=== PATIENT | male | born 1970 | race Asian ===

== ENCOUNTER → 2017-01-03 | Outpatient (CLI) | payer BC ==
[2017-01-03 13:55] LABS: BASOPHILS % 1.3 % (0.0-2.0); EOSINOPHILS % 6.4 % (0.0-5.0); HEMATOCRIT. 31.7 % (42.0-52.0); HEMOGLOBIN. 10.2 g/dL (14.0-18.0); LYMPHOCYTES % 23.9 % (20.0-50.0); MEAN CORPUSCULAR HEMOGLOBIN 26.1 pg (28.0-32.0); MEAN CORPUSCULAR HGB CONC 32.2 g/dL (31.0-37.0); MEAN CORPUSCULAR VOLUME 80.9 fL (80.0-94.0); MEAN PLATELET VOLUME 7.6 fl (7.4-10.4); MONOCYTES % 7.7 % (2.0-8.0); NEUTROPHILS % 60.7 % (40.0-76.0); PLATELET 261 x1000/uL (130-400); RED BLOOD CELL COUNT 3.92 mill/uL (4.7-6.1); RED CELL DISTRIBUTION WIDTH 14.1 % (11.6-14.6); WHITE BLOOD COUNT 7.4 x1000/uL (4.5-11.0)
[2017-01-03 13:58] LABS: CLARITY URINE CLEAR (CLEAR); COLOR URINE YELLOW (YELLOW); GLUCOSE URINE 1+ (NEGATIVE); KETONES URINE NEGATIVE (NEGATIVE); LEUKOCYTE ESTERASE URINE NEGATIVE (NEGATIVE); NITRITE URINE NEGATIVE (NEGATIVE); OCCULT BLOOD URINE 2+ (NEGATIVE); PROTEIN URINE 4+ (NEGATIVE); SPECIFIC GRAVITY URINE 1.016 (1.005-1.030)
[2017-01-03 14:15] LABS: MUCUS URINE TRACE /lpf (NONE/TRACE); WBC URINE 0-2 /hpf (0-2)
[2017-01-03 14:17] LABS: SQUAMOUS EPITHELIAL CELL URINE NONE SEEN /lpf (RARE/1+)
[2017-01-03 14:21] LABS: BACTERIA URINE TRACE
[2017-01-03 14:42] LABS: ALANINE AMINOTRANSFERASE 21 IU/L (13-61); ALBUMIN 2.1 g/dL (3.4-5.0); ANION GAP 8; CALCIUM 8.1 mg/dL (8.5-10.1); CARBON DIOXIDE 31 mEq/L (21-32); CHLORIDE 105 mEq/L (98-107); INDEX HEMOLYSI 1 (1-3); INDEX ICTERIC 1 (1-4); INDEX LIPEMIC 1 (1-3); IRON 57 ug/dL (50-175); MAGNESIUM 2.2 mg/dL (1.8-2.4); TOTAL IRON BINDING CAPACITY 210 ug/dL (250-450); UREA NITROGEN BLOOD 30 mg/dL (7-21); eGFR 31 mL/min (>60)
[2017-01-03 15:29] LABS: HEPATITIS C VIR.AB 0.13 INDEXVAL (0.00-0.80)
== END | disposition home or self-care (01) ==
LOC: LAB 13:21
DX: I12.9 Hypertensive chronic kidney disease with stage 1 through stage 4 chronic kidney disease, or unspecified chronic kidney disease (principal); E11.22 Type 2 diabetes mellitus with diabetic chronic kidney disease; N18.3 Chronic kidney disease, stage 3 (moderate)
CPT/HCPCS: 36415; 80053; 81001; 82570; 82728; 83036; 83540; 83550; 83735; 84100; 84156; 85025; 86592; 86803; 87086

== ENCOUNTER → 2017-01-31 | Outpatient (CLI) | payer BC ==
[2017-01-31 15:52] LABS: BASOPHILS % 1.2 % (0.0-2.0); EOSINOPHILS % 7.6 % (0.0-5.0); HEMATOCRIT. 30.5 % (42.0-52.0); HEMOGLOBIN. 9.7 g/dL (14.0-18.0); MEAN CORPUSCULAR HEMOGLOBIN 26.2 pg (28.0-32.0); MEAN PLATELET VOLUME 7.9 fl (7.4-10.4); MONOCYTES % 8.6 % (2.0-8.0); NEUTROPHILS % 62.6 % (40.0-76.0); PLATELET 283 x1000/uL (130-400); RED BLOOD CELL COUNT 3.72 mill/uL (4.7-6.1); RED CELL DISTRIBUTION WIDTH 14.1 % (11.6-14.6)
[2017-01-31 15:53] LABS: CLARITY URINE CLEAR (CLEAR); COLOR URINE YELLOW (YELLOW); GLUCOSE URINE 3+ (NEGATIVE); KETONES URINE NEGATIVE (NEGATIVE); LEUKOCYTE ESTERASE URINE NEGATIVE (NEGATIVE); NITRITE URINE NEGATIVE (NEGATIVE); OCCULT BLOOD URINE 2+ (NEGATIVE); PROTEIN URINE 3+ (NEGATIVE); UROBILINOGEN URINE 0.2 E.U./dL (0.2-1.0)
[2017-01-31 16:04] LABS: CARBON DIOXIDE 27 mEq/L (21-32); CHLORIDE 107 mEq/L (98-107)
[2017-01-31 16:14] LABS: PHOSPHORUS 2.7 mg/dL (2.5-4.9)
[2017-01-31 16:31] LABS: CREATININE URINE RANDOM 78.6 mg/dL
== END | disposition home or self-care (01) ==
LOC: LAB 15:06
PROVIDERS: ATTEND Internal Medicine
DX: I12.9 Hypertensive chronic kidney disease with stage 1 through stage 4 chronic kidney disease, or unspecified chronic kidney disease (principal); N18.3 Chronic kidney disease, stage 3 (moderate); D63.8 Anemia in other chronic diseases classified elsewhere
CPT/HCPCS: 36415; 80053; 81001; 82570; 83036; 83735; 84100; 84156; 84443; 85025; 87086

== ENCOUNTER → 2017-03-09 | Outpatient (CLI) | payer BC | END | disposition home or self-care (01) | LOC: LAB 11:44 | PROVIDERS: ATTEND Internal Medicine | DX: E11.9 Type 2 diabetes mellitus without complications (principal) | CPT/HCPCS: 36415; 80048; 83036 ==

== ENCOUNTER → 2017-05-05 | Outpatient (CLI) | payer BC ==
[2017-05-05 09:59] LABS: BASOPHILS % 1.1 % (0.0-2.0); EOSINOPHILS % 6.5 % (0.0-5.0); HEMATOCRIT. 34.4 % (42.0-52.0); HEMOGLOBIN. 10.9 g/dL (14.0-18.0); LYMPHOCYTES % 19.9 % (20.0-50.0); MEAN CORPUSCULAR HEMOGLOBIN 25.9 pg (28.0-32.0); MEAN CORPUSCULAR VOLUME 81.4 fL (80.0-94.0); MEAN PLATELET VOLUME 7.6 fl (7.4-10.4); NEUTROPHILS % 64.5 % (40.0-76.0); PLATELET 280 x1000/uL (130-400); RED BLOOD CELL COUNT 4.22 mill/uL (4.7-6.1); RED CELL DISTRIBUTION WIDTH 14.1 % (11.6-14.6)
[2017-05-05 10:00] LABS: CLARITY URINE CLEAR (CLEAR); COLOR URINE YELLOW (YELLOW); GLUCOSE URINE 1+ (NEGATIVE); KETONES URINE NEGATIVE (NEGATIVE); LEUKOCYTE ESTERASE URINE NEGATIVE (NEGATIVE); NITRITE URINE NEGATIVE (NEGATIVE); OCCULT BLOOD URINE 2+ (NEGATIVE); PROTEIN URINE 4+ (NEGATIVE); SPECIFIC GRAVITY URINE 1.021 (1.005-1.030); UROBILINOGEN URINE 0.2 E.U./dL (0.2-1.0)
[2017-05-05 10:22] LABS: CARBON DIOXIDE 27 mEq/L (21-32); CHLORIDE 109 mEq/L (98-107); HDL CHOLESTEROL 42 mg/dL (40-59); LDL CHOLESTEROL 136 mg/dL (5-100)
[2017-05-06 10:12] LABS: MICROALBUMIN RANDOM URINE 4036.2 ug/mL (Not Estab.)
== END | disposition home or self-care (01) ==
LOC: LAB 09:34
PROVIDERS: ATTEND Internal Medicine
DX: E11.22 Type 2 diabetes mellitus with diabetic chronic kidney disease (principal); N04.9 Nephrotic syndrome with unspecified morphologic changes; Z68.25 Body mass index [BMI] 25.0-25.9, adult
CPT/HCPCS: 36415; 80053; 80061; 81001; 82043; 82570; 83036; 85025

== ENCOUNTER → 2017-06-17 | Outpatient (CLI) | payer BC ==
[2017-06-17 09:25] LABS: BASOPHILS % 1.1 % (0.0-2.0); EOSINOPHILS % 9.5 % (0.0-5.0); HEMATOCRIT. 31.8 % (42.0-52.0); HEMOGLOBIN. 10.3 g/dL (14.0-18.0); LYMPHOCYTES % 35.5 % (20.0-50.0); MEAN CORPUSCULAR HEMOGLOBIN 26.5 pg (28.0-32.0); MEAN CORPUSCULAR VOLUME 81.9 fL (80.0-94.0); MEAN PLATELET VOLUME 7.9 fl (7.4-10.4); MONOCYTES % 7.9 % (2.0-8.0); PLATELET 267 x1000/uL (130-400); RED BLOOD CELL COUNT 3.88 mill/uL (4.7-6.1); RED CELL DISTRIBUTION WIDTH 14.2 % (11.6-14.6)
[2017-06-17 09:29] LABS: CARBON DIOXIDE 24 mEq/L (21-32); CHLORIDE 107 mEq/L (98-107)
[2017-06-17 09:33] LABS: GLUCOSE URINE 2+ (NEGATIVE); KETONES URINE NEGATIVE (NEGATIVE); LEUKOCYTE ESTERASE URINE NEGATIVE (NEGATIVE); NITRITE URINE NEGATIVE (NEGATIVE); OCCULT BLOOD URINE 1+ (NEGATIVE); PH URINE 5.5 (4.5-8.0); PROTEIN URINE 4+ (NEGATIVE); SPECIFIC GRAVITY URINE 1.018 (1.005-1.030); UROBILINOGEN URINE 0.2 E.U./dL (0.2-1.0)
[2017-06-17 09:35] LABS: CLARITY URINE CLEAR (CLEAR); COLOR URINE YELLOW (YELLOW)
== END | disposition home or self-care (01) ==
LOC: LAB 08:40
PROVIDERS: ATTEND Internal Medicine Nephrology
DX: I12.9 Hypertensive chronic kidney disease with stage 1 through stage 4 chronic kidney disease, or unspecified chronic kidney disease (principal); N18.3 Chronic kidney disease, stage 3 (moderate); E11.22 Type 2 diabetes mellitus with diabetic chronic kidney disease
CPT/HCPCS: 36415; 80053; 81001; 82570; 83735; 84100; 84156; 85025; 87086

== ENCOUNTER → 2017-07-13 | Outpatient (CLI) | payer BC ==
[2017-07-13 09:28] LABS: BASOPHILS % 1.1 % (0.0-2.0); EOSINOPHILS % 5.5 % (0.0-5.0); HEMATOCRIT. 33.5 % (42.0-52.0); HEMOGLOBIN. 11.1 g/dL (14.0-18.0); LYMPHOCYTES % 18.1 % (20.0-50.0); MEAN CORPUSCULAR HEMOGLOBIN 27.2 pg (28.0-32.0); MEAN CORPUSCULAR VOLUME 82.1 fL (80.0-94.0); MEAN PLATELET VOLUME 7.9 fl (7.4-10.4); MONOCYTES % 6.8 % (2.0-8.0); NEUTROPHILS % 68.5 % (40.0-76.0); PLATELET 295 x1000/uL (130-400); RED BLOOD CELL COUNT 4.08 mill/uL (4.7-6.1); RED CELL DISTRIBUTION WIDTH 15.1 % (11.6-14.6)
[2017-07-13 10:05] LABS: CARBON DIOXIDE 29 mEq/L (21-32); CHLORIDE 107 mEq/L (98-107); PHOSPHORUS 3.7 mg/dL (2.5-4.9)
[2017-07-13 10:11] LABS: CLARITY URINE CLEAR (CLEAR); COLOR URINE YELLOW (YELLOW); GLUCOSE URINE TRACE (NEGATIVE); KETONES URINE NEGATIVE (NEGATIVE); LEUKOCYTE ESTERASE URINE NEGATIVE (NEGATIVE); NITRITE URINE NEGATIVE (NEGATIVE); OCCULT BLOOD URINE 2+ (NEGATIVE); PROTEIN URINE 4+ (NEGATIVE); SPECIFIC GRAVITY URINE 1.016 (1.005-1.030); UROBILINOGEN URINE 0.2 E.U./dL (0.2-1.0)
== END | disposition home or self-care (01) ==
LOC: LAB 09:03
PROVIDERS: ATTEND Internal Medicine Nephrology
DX: E11.9 Type 2 diabetes mellitus without complications (principal); I12.9 Hypertensive chronic kidney disease with stage 1 through stage 4 chronic kidney disease, or unspecified chronic kidney disease; N18.4 Chronic kidney disease, stage 4 (severe)
CPT/HCPCS: 36415; 73030; 80053; 81001; 82306; 82570; 83036; 83735; 84100; 84156; 85025

== ENCOUNTER → 2017-08-17 | Outpatient (CLI) | payer BC ==
[2017-08-17 10:49] LABS: BASOPHILS % 0.9 % (0.0-2.0); HEMATOCRIT. 33.5 % (42.0-52.0); HEMOGLOBIN. 10.6 g/dL (14.0-18.0); LYMPHOCYTES % 19.9 % (20.0-50.0); MEAN CORPUSCULAR HEMOGLOBIN 26.3 pg (28.0-32.0); MEAN CORPUSCULAR VOLUME 82.9 fL (80.0-94.0); MEAN PLATELET VOLUME 7.6 fl (7.4-10.4); MONOCYTES % 7.9 % (2.0-8.0); NEUTROPHILS % 63.3 % (40.0-76.0); PLATELET 316 x1000/uL (130-400); RED BLOOD CELL COUNT 4.04 mill/uL (4.7-6.1); RED CELL DISTRIBUTION WIDTH 14.9 % (11.6-14.6)
[2017-08-17 11:12] LABS: CARBON DIOXIDE 27 mEq/L (21-32); CHLORIDE 109 mEq/L (98-107); PHOSPHORUS 3.2 mg/dL (2.5-4.9)
[2017-08-17 18:45] LABS: CLARITY URINE CLEAR (CLEAR); COLOR URINE YELLOW (YELLOW); KETONES URINE NEGATIVE (NEGATIVE); LEUKOCYTE ESTERASE URINE NEGATIVE (NEGATIVE); NITRITE URINE NEGATIVE (NEGATIVE); OCCULT BLOOD URINE 2+ (NEGATIVE); PH URINE 6.5 (4.5-8.0); PROTEIN URINE 4+ (NEGATIVE); SPECIFIC GRAVITY URINE 1.019 (1.005-1.030); UROBILINOGEN URINE 0.2 E.U./dL (0.2-1.0)
== END | disposition home or self-care (01) ==
LOC: LAB 10:15
PROVIDERS: ATTEND Internal Medicine Nephrology
DX: I12.9 Hypertensive chronic kidney disease with stage 1 through stage 4 chronic kidney disease, or unspecified chronic kidney disease (principal); E11.22 Type 2 diabetes mellitus with diabetic chronic kidney disease; N18.4 Chronic kidney disease, stage 4 (severe)
CPT/HCPCS: 36415; 80053; 81001; 82570; 83735; 84100; 84156; 85025; 87086

== ENCOUNTER → 2017-09-24 | Outpatient (CLI) | payer BC ==
[~2017-09-24] MED LIST: AMLO5TAB88 PO; ATOR-2 PO; EPOE200014 SUBCUT; FURO-151 PO; GLIM4TAB2 PO; HYDR1.5C TP; INSU100I28 SQ; LOSA100T14 PO; METO-411 PO; METO-539 PO; PHEN177L2 PO; SODI650T PO
[2017-09-24 09:19] LABS: BASOPHILS % 1.3 % (0.0-2.0); EOSINOPHILS % 11.2 % (0.0-5.0); HEMATOCRIT. 31.1 % (42.0-52.0); HEMOGLOBIN. 9.9 g/dL (14.0-18.0); LYMPHOCYTES % 25.3 % (20.0-50.0); MEAN CORPUSCULAR HEMOGLOBIN 26.5 pg (28.0-32.0); MEAN CORPUSCULAR VOLUME 83.6 fL (80.0-94.0); MEAN PLATELET VOLUME 7.7 fl (7.4-10.4); MONOCYTES % 8.8 % (2.0-8.0); NEUTROPHILS % 53.4 % (40.0-76.0); PLATELET 292 x1000/uL (130-400); RED BLOOD CELL COUNT 3.72 mill/uL (4.7-6.1); RED CELL DISTRIBUTION WIDTH 14.4 % (11.6-14.6)
[2017-09-24 10:24] LABS: CHLORIDE 112 mEq/L (98-107); PHOSPHORUS 2.9 mg/dL (2.5-4.9)
[2017-09-24 10:41] LABS: CLARITY URINE CLEAR (CLEAR); COLOR URINE YELLOW (YELLOW); KETONES URINE NEGATIVE (NEGATIVE); LEUKOCYTE ESTERASE URINE NEGATIVE (NEGATIVE); NITRITE URINE NEGATIVE (NEGATIVE); OCCULT BLOOD URINE 2+ (NEGATIVE); PROTEIN URINE 4+ (NEGATIVE); SPECIFIC GRAVITY URINE 1.019 (1.005-1.030); UROBILINOGEN URINE 0.2 E.U./dL (0.2-1.0)
== END | disposition home or self-care (01) ==
LOC: LAB 08:49
PROVIDERS: ATTEND Internal Medicine Nephrology
DX: I12.9 Hypertensive chronic kidney disease with stage 1 through stage 4 chronic kidney disease, or unspecified chronic kidney disease (principal); E11.22 Type 2 diabetes mellitus with diabetic chronic kidney disease; N18.4 Chronic kidney disease, stage 4 (severe)
CPT/HCPCS: 36415; 81001; 82570; 83036; 83735; 84100; 84156

== ENCOUNTER → 2017-11-27 | Outpatient (CLI) | payer BC ==
[2017-11-27 08:16] LABS: EOSINOPHILS % 6.1 % (0.0-5.0); HEMATOCRIT. 33.2 % (42.0-52.0); HEMOGLOBIN. 10.5 g/dL (14.0-18.0); LYMPHOCYTES % 21.7 % (20.0-50.0); MEAN CORPUSCULAR HEMOGLOBIN 26.4 pg (28.0-32.0); MEAN CORPUSCULAR VOLUME 83.1 fL (80.0-94.0); MEAN PLATELET VOLUME 8.3 fl (7.4-10.4); NEUTROPHILS % 64.2 % (40.0-76.0); PLATELET 326 x1000/uL (130-400); RED CELL DISTRIBUTION WIDTH 14.5 % (11.6-14.6)
[2017-11-27 08:25] LABS: INR 0.9; PARTIAL THROMBOPLASTIN TIME 28.2 sec (23.4-31.0); PROTHROMBIN TIME 9.7 sec (9.4-11.6)
[2017-11-27 08:38] LABS: CHLORIDE 105 mEq/L (98-107)
[2017-11-27 08:48] LABS: PHOSPHORUS 3.9 mg/dL (2.5-4.9)
[2017-11-27 10:00] LABS: CLARITY URINE CLEAR (CLEAR); COLOR URINE YELLOW (YELLOW); KETONES URINE NEGATIVE (NEGATIVE); LEUKOCYTE ESTERASE URINE NEGATIVE (NEGATIVE); NITRITE URINE NEGATIVE (NEGATIVE); OCCULT BLOOD URINE 1+ (NEGATIVE); PROTEIN URINE 3+ (NEGATIVE); SPECIFIC GRAVITY URINE 1.013 (1.005-1.030); UROBILINOGEN URINE 0.2 E.U./dL (0.2-1.0)
== END | disposition home or self-care (01) ==
LOC: LAB 07:47
PROVIDERS: ATTEND Internal Medicine Nephrology
DX: I12.9 Hypertensive chronic kidney disease with stage 1 through stage 4 chronic kidney disease, or unspecified chronic kidney disease (principal); N18.4 Chronic kidney disease, stage 4 (severe); E11.22 Type 2 diabetes mellitus with diabetic chronic kidney disease; D63.1 Anemia in chronic kidney disease; R79.89 Other specified abnormal findings of blood chemistry
CPT/HCPCS: 36415; 80053; 81003; 83036; 83735; 84100; 85025; 85610; 85730; 87086

== ENCOUNTER → 2018-03-18 | Outpatient (CLI) | payer BC ==
[2018-03-18 10:53] LABS: BASOPHILS % 1.2 % (0.0-2.0); EOSINOPHILS % 6.6 % (0.0-5.0); HEMATOCRIT. 29.6 % (42.0-52.0); HEMOGLOBIN. 9.5 g/dL (14.0-18.0); LYMPHOCYTES % 22.4 % (20.0-50.0); MEAN CORPUSCULAR HEMOGLOBIN 26.7 pg (28.0-32.0); MEAN CORPUSCULAR VOLUME 83.3 fL (80.0-94.0); MEAN PLATELET VOLUME 7.5 fl (7.4-10.4); MONOCYTES % 7.5 % (2.0-8.0); NEUTROPHILS % 62.3 % (40.0-76.0); PLATELET 327 x1000/uL (130-400); RED BLOOD CELL COUNT 3.55 mill/uL (4.7-6.1); RED CELL DISTRIBUTION WIDTH 14.7 % (11.6-14.6)
[2018-03-18 10:58] LABS: CLARITY URINE CLEAR (CLEAR); COLOR URINE YELLOW (YELLOW); KETONES URINE NEGATIVE (NEGATIVE); LEUKOCYTE ESTERASE URINE NEGATIVE (NEGATIVE); NITRITE URINE NEGATIVE (NEGATIVE); OCCULT BLOOD URINE 2+ (NEGATIVE); PROTEIN URINE 3+ (NEGATIVE); SPECIFIC GRAVITY URINE 1.011 (1.005-1.030); UROBILINOGEN URINE 0.2 E.U./dL (0.2-1.0)
[2018-03-18 11:00] LABS: CHLORIDE 112 mEq/L (98-107)
[2018-03-18 11:07] LABS: PHOSPHORUS 4.8 mg/dL (2.5-4.9)
== END | disposition home or self-care (01) ==
LOC: LAB 10:24
PROVIDERS: ATTEND Internal Medicine Nephrology
DX: E11.22 Type 2 diabetes mellitus with diabetic chronic kidney disease (principal); I12.9 Hypertensive chronic kidney disease with stage 1 through stage 4 chronic kidney disease, or unspecified chronic kidney disease; N18.4 Chronic kidney disease, stage 4 (severe); D63.8 Anemia in other chronic diseases classified elsewhere
CPT/HCPCS: 36415; 80053; 81003; 82570; 83036; 83735; 84100; 84156; 85025; 87086

== ENCOUNTER → 2018-04-22 | Outpatient (CLI) | payer BC ==
[2018-04-22 09:08] LABS: CLARITY URINE CLEAR (CLEAR); COLOR URINE YELLOW (YELLOW); KETONES URINE NEGATIVE (NEGATIVE); LEUKOCYTE ESTERASE URINE NEGATIVE (NEGATIVE); NITRITE URINE NEGATIVE (NEGATIVE); OCCULT BLOOD URINE 2+ (NEGATIVE); PROTEIN URINE 4+ (NEGATIVE); SPECIFIC GRAVITY URINE 1.014 (1.005-1.030); UROBILINOGEN URINE 0.2 E.U./dL (0.2-1.0)
[2018-04-22 09:18] LABS: PARTIAL THROMBOPLASTIN TIME 30.6 sec (23.4-31.0)
[2018-04-22 09:35] LABS: BASOPHILS % 1.8 % (0.0-2.0); EOSINOPHILS % 9.2 % (0.0-5.0); HEMATOCRIT. 27.2 % (42.0-52.0); HEMOGLOBIN. 8.9 g/dL (14.0-18.0); LYMPHOCYTES % 28.1 % (20.0-50.0); MEAN CORPUSCULAR HEMOGLOBIN 27.7 pg (28.0-32.0); MEAN CORPUSCULAR VOLUME 84.6 fL (80.0-94.0); MEAN PLATELET VOLUME 8.4 fl (7.4-10.4); MONOCYTES % 8.5 % (2.0-8.0); NEUTROPHILS % 52.4 % (40.0-76.0); PLATELET 277 x1000/uL (130-400); RED BLOOD CELL COUNT 3.21 mill/uL (4.7-6.1); RED CELL DISTRIBUTION WIDTH 15.1 % (11.6-14.6)
[2018-04-22 09:47] LABS: CHLORIDE 113 mEq/L (98-107)
[2018-04-22 10:07] LABS: PHOSPHORUS 5.7 mg/dL (2.5-4.9)
== END | disposition home or self-care (01) ==
LOC: LAB 08:36
PROVIDERS: ATTEND Internal Medicine Nephrology
DX: I12.9 Hypertensive chronic kidney disease with stage 1 through stage 4 chronic kidney disease, or unspecified chronic kidney disease (principal); E11.22 Type 2 diabetes mellitus with diabetic chronic kidney disease; N18.4 Chronic kidney disease, stage 4 (severe); D63.8 Anemia in other chronic diseases classified elsewhere
CPT/HCPCS: 36415; 80053; 81003; 82570; 83036; 83735; 84100; 84156; 85025; 85610; 85730

== ENCOUNTER → 2018-05-13 | Outpatient (CLI) | payer BC ==
[~2018-05-13] MED LIST changes: -EPOE200014 SUBCUT; -METO-411 PO; +NIFEDIPINE 10MG CAPSULE ONE; -PHEN177L2 PO; -SODI650T PO
[2018-05-13 09:38] LABS: HEMOGLOBIN. 9.3 g/dL (14.0-18.0); RED BLOOD CELL COUNT 3.37 mill/uL (4.7-6.1)
[2018-05-13 09:39] LABS: BASOPHILS % 1.2 % (0.0-2.0); EOSINOPHILS % 8.8 % (0.0-5.0); LYMPHOCYTES % 25.3 % (20.0-50.0); MEAN CORPUSCULAR HEMOGLOBIN 27.6 pg (28.0-32.0); MEAN CORPUSCULAR VOLUME 83.1 fL (80.0-94.0); MEAN PLATELET VOLUME 7.8 fl (7.4-10.4); MONOCYTES % 8.5 % (2.0-8.0); NEUTROPHILS % 56.2 % (40.0-76.0); PLATELET 299 x1000/uL (130-400); RED CELL DISTRIBUTION WIDTH 14.7 % (11.6-14.6)
[2018-05-13 09:39] LABS: CLARITY URINE CLEAR (CLEAR); COLOR URINE YELLOW (YELLOW); KETONES URINE NEGATIVE (NEGATIVE); LEUKOCYTE ESTERASE URINE NEGATIVE (NEGATIVE); NITRITE URINE NEGATIVE (NEGATIVE); OCCULT BLOOD URINE 2+ (NEGATIVE); PH URINE 6.5 (4.5-8.0); PROTEIN URINE 3+ (NEGATIVE); SPECIFIC GRAVITY URINE 1.009 (1.005-1.030); UROBILINOGEN URINE 0.2 E.U./dL (0.2-1.0)
[2018-05-13 09:45] LABS: PARTIAL THROMBOPLASTIN TIME 29.4 sec (23.4-31.0); PROTHROMBIN TIME 9.7 sec (9.1-11.1)
[2018-05-13 10:40] LABS: CHLORIDE 106 mEq/L (98-107)
== END | disposition home or self-care (01) ==
LOC: LAB 09:09
PROVIDERS: ATTEND Internal Medicine Nephrology
DX: I12.0 Hypertensive chronic kidney disease with stage 5 chronic kidney disease or end stage renal disease (principal); N18.5 Chronic kidney disease, stage 5; D63.1 Anemia in chronic kidney disease; Z79.899 Other long term (current) drug therapy
CPT/HCPCS: 36415; 80053; 81003; 82570; 83036; 83735; 83970; 84100; 84156; 85025; 85610; 85730; 87086

== ENCOUNTER 2018-05-14 07:40 | Day surgery (SDC) | payer BC ==
[~2018-05-14] VITALS: Ht 167.6 cm; Wt 74.8 kg
[2018-05-14] VITALS (12 sets, daily range): BP systolic 113–210; BP diastolic 60–107
[2018-05-14] MEDS ORDERED: FENTANYL CITRATE/PF 50MCG/ML 2ML VIAL ONE (08:06)
[2018-05-14] MEDS ORDERED: SODIUM BICARBONATE 4% (2.4MEQ) 5ML VIAL IV ONE (08:26)
[2018-05-14] MEDS ORDERED: LIDOCAINE HCL 1% 10 MG/ML 10ML VIAL ONE (08:26)
[2018-05-14] MEDS ORDERED: LOSA100T14 PO (09:08)
[2018-05-14] MEDS ORDERED: HYDR1.5C TP (09:08)
[2018-05-14] MEDS ORDERED: FURO-151 PO (09:08)
[2018-05-14] MEDS ORDERED: GLIM4TAB2 PO (09:08)
[2018-05-14] MEDS ORDERED: AMLO5TAB88 PO (09:08)
[2018-05-14] MEDS ORDERED: ATOR-2 PO (09:08)
[2018-05-14] MEDS ORDERED: METO-539 PO (09:08)
[2018-05-14] MEDS ORDERED: NIFEDIPINE 10MG CAPSULE PO ONE (09:15)
[2018-05-14] MEDS ORDERED: INSU100I28 SQ (09:20)
[2018-05-14] MEDS ORDERED: FENTANYL CITRATE/PF 50MCG/ML 2ML VIAL IV ONE (09:30)
[2018-05-14] MEDS ORDERED: HYDROCODONE/ACETAMINOPHEN 5/325MG TABLET PO PRN (09:30)
[2018-05-14 12:58] LABS: HEMATOCRIT 25.2 % (42.0-52.0); HEMOGLOBIN 8.3 g/dL (14.0-18.0)
== END 2018-05-14 14:00 | disposition home or self-care (01) ==
LOC: RAD 07:40
PROVIDERS: ATTEND Internal Medicine Nephrology
DX: E11.22 Type 2 diabetes mellitus with diabetic chronic kidney disease (principal); N18.6 End stage renal disease; I12.0 Hypertensive chronic kidney disease with stage 5 chronic kidney disease or end stage renal disease; D64.9 Anemia, unspecified; Z79.4 Long term (current) use of insulin; Z79.899 Other long term (current) drug therapy
CPT/HCPCS: 36415; 50200; 76942; 85014; 85018; 88305; 88346; 88348; J3010; J3490; J7050

== ENCOUNTER 2018-06-28 05:20 | Day surgery (SDC) | payer BC ==
[~2018-06-28] VITALS: Ht 167.6 cm; Wt 72.6 kg
[~2018-06-28 05:20] MED LIST changes: +METO-411 PO; -METO-539 PO; -NIFEDIPINE 10MG CAPSULE ONE; +PHEN177L2 PO
[2018-06-28 06:40] LABS: PARTIAL THROMBOPLASTIN TIME 30.5 sec (23.4-31.0); PROTHROMBIN TIME 9.7 sec (9.1-11.1)
[2018-06-28] MEDS ORDERED: SODIUM CHLORIDE 0.9% 500 ML IV ONE (06:40)
[2018-06-28 06:54] LABS: BASOPHILS % 1.9 % (0.0-2.0); EOSINOPHILS % 6.8 % (0.0-5.0); HEMATOCRIT. 29.8 % (42.0-52.0); HEMOGLOBIN. 9.3 g/dL (14.0-18.0); LYMPHOCYTES % 14.3 % (20.0-50.0); MEAN CORPUSCULAR HEMOGLOBIN 26.8 pg (28.0-32.0); MEAN CORPUSCULAR VOLUME 85.4 fL (80.0-94.0); MEAN PLATELET VOLUME 8.6 fl (7.4-10.4); MONOCYTES % 8.1 % (2.0-8.0); NEUTROPHILS % 68.9 % (40.0-76.0); PLATELET 359 x1000/uL (130-400); RED BLOOD CELL COUNT 3.49 mill/uL (4.7-6.1); RED CELL DISTRIBUTION WIDTH 15.7 % (11.6-14.6)
[2018-06-28] MEDS ORDERED: BACITRACIN ZINC 15GM TUBE TOP ONE (07:20)
[2018-06-28] MEDS ORDERED: HEPARIN SODIUM 1,000 UNIT/1ML VIAL IV ONE (07:20)
[2018-06-28] MEDS ORDERED: GELATIN SPONGE,ABSORBABLE 12-7MM SPONGE ONE (07:20)
[2018-06-28] MEDS ORDERED: THROMBIN (BOVINE) 5000 UNITS/VIAL TOP ONE (07:21)
[2018-06-28] MEDS ORDERED: NORMAL SALINE 0.9% 10 ML SYR ONE (07:21)
[2018-06-28] MEDS ORDERED: BUPIVACAINE HCL/PF 0.5% (5MG/ML) 10ML ONE (07:21)
[2018-06-28] MEDS ORDERED: BACITRACIN 50,000 UNITS/VIAL ONE (07:22)
[2018-06-28] MEDS ORDERED: LIDOCAINE HCL/PF 1% 10 MG/ML 5ML VIAL ONE (07:22)
[2018-06-28] MEDS ORDERED: SODIUM CHLORIDE 0.9% 1,000 ML ONE (07:22)
[2018-06-28] MEDS ORDERED: PROPOFOL 200MG/20ML VIAL IV ONE (07:56)
[2018-06-28] MEDS ORDERED: GLYCOPYRROLATE 0.2 MG/ML 2ML VIAL ONE ×2 (08:10→08:26)
[2018-06-28] MEDS ORDERED: SODI650T PO (08:13)
[2018-06-28] MEDS ORDERED: EPOE200014 SUBCUT (08:13)
[2018-06-28] MEDS ORDERED: FENTANYL CITRATE/PF 50MCG/ML 2ML VIAL ONE (08:19)
[2018-06-28] MEDS ORDERED: HYDROCODONE/ACETAMINOPHEN 5/325MG TABLET PO PRN (10:15)
[2018-06-28] MEDS ORDERED: ONDANSETRON HCL 4MG/2ML INJ IV PRN (11:15)
[2018-06-28] MEDS ORDERED: HYDROMORPHONE HCL/PF 2MG/ML CPJ IV PRN (11:15)
== END 2018-06-28 11:15 | disposition home or self-care (01) ==
LOC: OR 05:20
PROVIDERS: ATTEND Surgery Vascular Surgery
DX: N18.6 End stage renal disease (principal); I12.0 Hypertensive chronic kidney disease with stage 5 chronic kidney disease or end stage renal disease; E11.22 Type 2 diabetes mellitus with diabetic chronic kidney disease; D64.9 Anemia, unspecified; E78.00 Pure hypercholesterolemia, unspecified; K21.9 Gastro-esophageal reflux disease without esophagitis; Z79.899 Other long term (current) drug therapy; Z79.4 Long term (current) use of insulin; Z98.890 Other specified postprocedural states
CPT/HCPCS: 36415; 36821; 71045; 80048; 82962; 85025; 85610; 85730; 93005; A4216; J1644; J3010; J3490; J7030; J2704; J7040

== ENCOUNTER → 2018-07-06 | Day surgery (SDC) | payer BC ==
[2018-07-06] VITALS (12 sets, daily range): BP systolic 110–137; BP diastolic 86–97
[~2018-07-06] VITALS: Ht 167.6 cm; Wt 72.6 kg
[~2018-07-06] MED LIST changes: +CEFAZOLIN 1000MG PREMIX 50 ML IV ONE; +EPOE200014 SUBCUT; +FENTANYL CITRATE/PF 50MCG/ML 2ML VIAL IV ONE; +FENTANYL CITRATE/PF 50MCG/ML 2ML VIAL ONE; -HYDR1.5C TP; -INSU100I28 SQ; +LIDOCAINE HCL 1% 20ML VIAL (Pyxis) INJ ONE; -PHEN177L2 PO; +SODI650T PO; +SODIUM BICARBONATE 4% (2.4MEQ) 5ML VIAL IV ONE
[2018-07-06 08:58] LABS: EOSINOPHILS % 3.1 % (0.0-5.0); HEMATOCRIT. 26.3 % (42.0-52.0); HEMOGLOBIN. 8.5 g/dL (14.0-18.0); LYMPHOCYTES % 12.1 % (20.0-50.0); MEAN CORPUSCULAR HEMOGLOBIN 27.8 pg (28.0-32.0); MEAN CORPUSCULAR VOLUME 85.4 fL (80.0-94.0); MEAN PLATELET VOLUME 8.3 fl (7.4-10.4); MONOCYTES % 10.8 % (2.0-8.0); PLATELET 318 x1000/uL (130-400); RED BLOOD CELL COUNT 3.08 mill/uL (4.7-6.1); RED CELL DISTRIBUTION WIDTH 15.4 % (11.6-14.6)
[2018-07-06 09:03] LABS: PARTIAL THROMBOPLASTIN TIME 32.7 sec (23.4-31.0)
[2018-07-06 09:46] LABS: PHOSPHORUS 8.9 mg/dL (2.5-4.9)
== END | disposition home or self-care (01) ==
LOC: ANGIO 08:34
PROVIDERS: ATTEND Internal Medicine Nephrology
DX: N18.6 End stage renal disease (principal); D64.9 Anemia, unspecified; K21.9 Gastro-esophageal reflux disease without esophagitis; E78.00 Pure hypercholesterolemia, unspecified; I12.0 Hypertensive chronic kidney disease with stage 5 chronic kidney disease or end stage renal disease; E11.22 Type 2 diabetes mellitus with diabetic chronic kidney disease; Z79.4 Long term (current) use of insulin; Z79.899 Other long term (current) drug therapy; Z98.890 Other specified postprocedural states
CPT/HCPCS: 36415; 36558; 71046; 76937; 77001; 80069; 85025; 85610; 85730; 99152; 99153; C1769; J0690; J1642; J3010; J3490; C1750; J7050

== ENCOUNTER → 2018-10-26 | Day surgery (SDC) | payer BC ==
[~2018-10-26] MED LIST changes: -CEFAZOLIN 1000MG PREMIX 50 ML IV ONE; -FENTANYL CITRATE/PF 50MCG/ML 2ML VIAL IV ONE; -FENTANYL CITRATE/PF 50MCG/ML 2ML VIAL ONE
== END | disposition home or self-care (01) ==
LOC: ANGIO 09:11
PROVIDERS: ATTEND Internal Medicine Nephrology
DX: N18.6 End stage renal disease (principal)
CPT/HCPCS: 36589; 87070; J3490

== ENCOUNTER → 2018-11-30 | Outpatient (CLI) | payer BC ==
[~2018-11-30] MED LIST changes: -LIDOCAINE HCL 1% 20ML VIAL (Pyxis) INJ ONE; -SODIUM BICARBONATE 4% (2.4MEQ) 5ML VIAL IV ONE
== END | disposition home or self-care (01) ==
LOC: RAD 09:32
PROVIDERS: ATTEND Internal Medicine Nephrology
DX: I12.0 Hypertensive chronic kidney disease with stage 5 chronic kidney disease or end stage renal disease (principal); E11.22 Type 2 diabetes mellitus with diabetic chronic kidney disease; N18.6 End stage renal disease; K21.9 Gastro-esophageal reflux disease without esophagitis
CPT/HCPCS: 71046

== ENCOUNTER → 2019-09-27 | Outpatient (CLI) | payer BC ==
[~2019-09-27] MED LIST changes: -GLIM4TAB2 PO; +GLIM4TAB36 PO; -LOSA100T14 PO; +LOSA100T32 PO
== END | disposition home or self-care (01) ==
LOC: RAD 10:53
PROVIDERS: ATTEND Internal Medicine Nephrology
DX: J90 Pleural effusion, not elsewhere classified (principal); I51.7 Cardiomegaly
CPT/HCPCS: 71046

== ENCOUNTER → 2019-10-04 | Outpatient (CLI) | payer BC | END | disposition home or self-care (01) | LOC: US 12:53 | PROVIDERS: ATTEND Internal Medicine Nephrology | DX: N18.5 Chronic kidney disease, stage 5 (principal) | CPT/HCPCS: 93971 ==

== ENCOUNTER 2019-10-24 21:23 | Inpatient (IN) | payer BC ==
[~2019-10-24] VITALS: Ht 165.1 cm; Wt 65.3 kg
[2019-10-24 21:30] VITALS: BP 141/70
[2019-10-24] MEDS ORDERED: MORPHINE SULFATE 2 MG/ML CPJ (NOT FOR IM USE) IV PRN ×2 (22:00→23:15)
[2019-10-24] MEDS ORDERED: DEXTROSE 50% WATER 50ML SYRINGE IV PRN (22:00)
[2019-10-24] MEDS ORDERED: LORAZEPAM 2MG/ML CPJ IV PRN (22:00)
[2019-10-24] MEDS ORDERED: DEXT 5%/0.9% NACL 1,000 ML IV SCH (22:00)
[2019-10-24] MEDS ORDERED: DILT180C51 MT (22:11)
[2019-10-24] MEDS ORDERED: CALC667C MT (22:12)
[2019-10-24] MEDS ORDERED: LINA5TAB PO (22:14)
[2019-10-24 22:22] LABS: BG BASE EXCESS -4.8 mmol/L (-2.0-2.0); BG CARBOXYHEMOGLOBIN 0.9 % (0.5-1.5); BG DEOXYHEMOGLOBIN 2.2 % (0.0-5.0); BG FRACTION INSPIRED OXYGEN 40; BG HCO3 ACT 20.3 mmol/L (22.0-26.0); BG OXYGEN SATURATION 97.8 % (92.0-98.5); BG OXYHEMOGLOBIN 96.9 % (94.0-97.0); BG PCO2 37.9 mmHg (35.0-45.0); BG PH 7.347 (7.350-7.450); BG PO2 114.6 mmHg (75.0-100.0); BG PRESSURE SUPPORT 10; BG SAMPLE SITE RIGHT RADIAL; BG TOTAL HEMOGLOBIN 12.4 g/dL (12.0-18.0); BG VENT MODE VENT - CPAP
[2019-10-24 23:15] VITALS: BP 143/77
[2019-10-24] MEDS ORDERED: CLONIDINE 0.1MG TABLET PO PRN (23:15)
[2019-10-24] MEDS ORDERED: ONDANSETRON HCL 4MG/2ML INJ IV PRN (23:15)
[2019-10-24] MEDS ORDERED: DOCUSATE SODIUM 100MG CAPSULE PO PRN (23:15)
[2019-10-24] MEDS ORDERED: MAGNESIUM/ALUMINUM HYDROXIDE/SIMETHICONE 30ML UDC PO PRN (23:15)
[2019-10-24 23:28] VITALS: BP 143/82
[2019-10-24 23:30] VITALS: BP 147/80
[2019-10-24] MEDS: INSULIN LISPRO 100 UNITS/ML SUBCUT SCH (23:43)
[2019-10-24] MEDS: BLOOD SUGAR DIAGNOSTIC STRIP TEST SCH (23:43)
[2019-10-24 23:58] LABS: CHLORIDE 100 mEq/L (98-107); HEMATOCRIT. 31.2 % (42.0-52.0); HEMOGLOBIN. 10.1 g/dL (14.0-18.0); MEAN CORPUSCULAR HEMOGLOBIN 26.2 pg (28.0-32.0); MEAN CORPUSCULAR VOLUME 81.1 fL (80.0-94.0); MEAN PLATELET VOLUME 8.3 fl (7.4-10.4); PLATELET 203 x1000/uL (130-400); RED BLOOD CELL COUNT 3.85 mill/uL (4.7-6.1); RED CELL DISTRIBUTION WIDTH 19.1 % (11.6-14.6)
[2019-10-25] VITALS (43 sets, daily range): BP systolic 116–162; BP diastolic 56–109
[2019-10-25 00:34] LABS: PHOSPHORUS 9.2 mg/dL (2.5-4.9)
[2019-10-25 05:42] LABS: HEMOGLOBIN. 10.1 g/dL (14.0-18.0); MEAN CORPUSCULAR HEMOGLOBIN 26.2 pg (28.0-32.0); MEAN CORPUSCULAR VOLUME 80.6 fL (80.0-94.0); MEAN PLATELET VOLUME 8.7 fl (7.4-10.4); PLATELET 198 x1000/uL (130-400); RED BLOOD CELL COUNT 3.84 mill/uL (4.7-6.1); RED CELL DISTRIBUTION WIDTH 18.8 % (11.6-14.6)
[2019-10-25 05:44] LABS: INR 1.2; PROTHROMBIN TIME 12.9 sec (9.6-11.0)
[2019-10-25 05:51] LABS: CHLORIDE 98 mEq/L (98-107)
[2019-10-25] MEDS: INSULIN LISPRO 100 UNITS/ML SUBCUT SCH ×4 (06:00→23:41)
[2019-10-25] MEDS: BLOOD SUGAR DIAGNOSTIC STRIP TEST SCH ×4 (06:10→23:38)
[2019-10-25 06:53] LABS: PLATELET ESTIMATE NORMAL
[2019-10-25 07:13] LABS: PHOSPHORUS 9.2 mg/dL (2.5-4.9)
[2019-10-25 07:31] LABS: BG BASE EXCESS -4.4 mmol/L (-2.0-2.0); BG CARBOXYHEMOGLOBIN 0.7 % (0.5-1.5); BG DEOXYHEMOGLOBIN 4.1 % (0.0-5.0); BG FRACTION INSPIRED OXYGEN 40; BG METHEMOGLOBIN 0.5 % (0.0-1.5); BG OXYGEN SATURATION 95.9 % (92.0-98.5); BG OXYHEMOGLOBIN 94.7 % (94.0-97.0); BG PCO2 34.6 mmHg (35.0-45.0); BG PH 7.379 (7.350-7.450); BG PO2 90.9 mmHg (75.0-100.0); BG PRESSURE SUPPORT 10; BG SAMPLE SITE RIGHT RADIAL; BG TOTAL HEMOGLOBIN 12.3 g/dL (12.0-18.0); BG VENT MODE VENT - CPAP
[2019-10-25] MEDS ORDERED: PNEUMOCOCCAL 23-VAL P-SAC VAC 0.5 ML IM ONE (08:00)
[2019-10-25] MEDS: ENOXAPARIN 30MG/0.3ML SYR SUBCUT SCH ×2 (08:19→11:26)
[2019-10-25] MEDS: PANTOPRAZOLE SODIUM 40 MG/VIAL IV SCH (08:19)
[2019-10-25] MEDS: ACETAMINOPHEN 325MG TABLET PO PRN (08:20)
[2019-10-25 08:23] LABS: PLATELET ESTIMATE NORMAL
[2019-10-25] MEDS ORDERED: PANTOPRAZOLE SODIUM 40 MG/VIAL IV SCH (09:00)
[2019-10-25] MEDS: METOPROLOL TARTRATE 25MG TABLET NG SCH ×2 (11:26→20:35)
[2019-10-25] MEDS ORDERED: VANCOMYCIN 1 G PREMIX 200 ML IV NR (12:00)
[2019-10-25 13:12] LABS: BG BASE EXCESS 1.7 mmol/L (-2.0-2.0); BG CARBOXYHEMOGLOBIN 0.2 % (0.5-1.5); BG DEOXYHEMOGLOBIN 3.4 % (0.0-5.0); BG FRACTION INSPIRED OXYGEN 40; BG METHEMOGLOBIN 0.1 % (0.0-1.5); BG OXYGEN SATURATION 96.6 % (92.0-98.5); BG OXYHEMOGLOBIN 96.3 % (94.0-97.0); BG PCO2 39.2 mmHg (35.0-45.0); BG PH 7.439 (7.350-7.450); BG PRESSURE SUPPORT 8; BG SAMPLE SITE RIGHT RADIAL; BG TOTAL HEMOGLOBIN 10.3 g/dL (12.0-18.0); BG VENT MODE VENT - CPAP
[2019-10-25] MEDS ORDERED: LORAZEPAM 2MG/ML CPJ IV PRN (13:15)
[2019-10-25] MEDS ORDERED: MORPHINE SULFATE 2 MG/ML CPJ (NOT FOR IM USE) IV PRN (13:15)
[2019-10-25] MEDS ORDERED: DILTIAZEM HCL 125 MG in DEXT 5% WATER 100 ML IV SCH ×2 (14:00→16:13)
[2019-10-25] MEDS ORDERED: DILTIAZEM HCL 5MG/ML 5ML VIAL IV NR ×2 (14:00→15:00)
[2019-10-25] MEDS ORDERED: PIPERACILLIN/TAZOBACTAM 2.25 G in DEXTROSE 5% WATER 50 ML IV SCH (14:00)
[2019-10-25] MEDS: NICOTINE 21MG PATCH TD SCH (14:43)
[2019-10-25] MEDS ORDERED: ENOXAPARIN 80MG/0.8ML SYR SUBCUT SCH (15:00)
[2019-10-25] MEDS ORDERED: ALBUMIN HUMAN 25GM/100ML (25%) IV NR (15:00)
[2019-10-25] MEDS ORDERED: ENOXAPARIN 40MG/0.4ML SYR SUBCUT NR (15:30)
[2019-10-25] MEDS ORDERED: VISCOUS LIDOCAINE 2% 15 ML UDC MM PRN (16:00)
[2019-10-25] MEDS ORDERED: IPRATROPIUM/ALBUTEROL 0.5-3(2.5)MG/3ML NEB HHN PRN (16:30)
[2019-10-25] MEDS: IPRATROPIUM BROMIDE (0.02%) 0.5MG/2.5ML NEB HHN SCH ×2 (16:40→21:25)
[2019-10-25] MEDS ORDERED: VANCOMYCIN 500 MG PREMIX 100 ML IV SCH (20:00)
[2019-10-26] VITALS (41 sets, daily range): BP systolic 112–165; BP diastolic 56–87
[2019-10-26] MEDS: ACETAMINOPHEN 325MG TABLET PO PRN (01:30)
[2019-10-26] MEDS: IPRATROPIUM BROMIDE (0.02%) 0.5MG/2.5ML NEB HHN SCH ×4 (02:09→20:14)
[2019-10-26 05:12] LABS: CHLORIDE 102 mEq/L (98-107)
[2019-10-26 05:15] LABS: HEMATOCRIT. 28.7 % (42.0-52.0); HEMOGLOBIN. 9.5 g/dL (14.0-18.0); MEAN CORPUSCULAR HEMOGLOBIN 26.6 pg (28.0-32.0); MEAN PLATELET VOLUME 8.5 fl (7.4-10.4); PLATELET 177 x1000/uL (130-400); RED BLOOD CELL COUNT 3.59 mill/uL (4.7-6.1); RED CELL DISTRIBUTION WIDTH 19.3 % (11.6-14.6)
[2019-10-26 05:24] LABS: PHOSPHORUS 7.1 mg/dL (2.5-4.9)
[2019-10-26 05:27] LABS: CREATINE KINASE 394 IU/L (39-308)
[2019-10-26 05:59] LABS: HEPATITIS B SURFACE ANTIGEN NEGATIVE
[2019-10-26] MEDS: INSULIN LISPRO 100 UNITS/ML SUBCUT SCH ×3 (06:00→18:00)
[2019-10-26] MEDS: BLOOD SUGAR DIAGNOSTIC STRIP TEST SCH ×3 (06:09→18:19)
[2019-10-26 06:29] LABS: HEPATITIS A AB IGM NEGATIVE (NEGATIVE)
[2019-10-26 08:05] LABS: PLATELET ESTIMATE NORMAL
[2019-10-26] MEDS: PANTOPRAZOLE SODIUM 40 MG/VIAL IV SCH (08:08)
[2019-10-26] MEDS: NICOTINE 21MG PATCH TD SCH (08:08)
[2019-10-26] MEDS: METOPROLOL TARTRATE 25MG TABLET NG SCH ×2 (08:09→20:41)
[2019-10-26] MEDS: CALCIUM ACETATE 667 MG TABLET PO SCH ×2 (11:30→18:24)
[2019-10-26] MEDS: DILTIAZEM HCL 60MG TABLET PO SCH ×2 (13:50→20:42)
[2019-10-26] MEDS: ENOXAPARIN 80MG/0.8ML SYR SUBCUT SCH (18:25)
[2019-10-26] MEDS: GUAIFENESIN 600MG ER TABLET PO SCH (20:41)
[2019-10-26] MEDS ORDERED: EPOETIN ALFA 10000UNITS/ML VIAL SUBCUT SCH (21:00)
[2019-10-27] VITALS (36 sets, daily range): BP systolic 100–161; BP diastolic 55–104
[2019-10-27] MEDS: BLOOD SUGAR DIAGNOSTIC STRIP TEST SCH ×5 (00:17→23:52)
[2019-10-27] MEDS: INSULIN LISPRO 100 UNITS/ML SUBCUT SCH ×5 (00:21→23:57)
[2019-10-27] MEDS: IPRATROPIUM BROMIDE (0.02%) 0.5MG/2.5ML NEB HHN SCH ×4 (01:04→21:03)
[2019-10-27 06:04] LABS: CHLORIDE 101 mEq/L (98-107)
[2019-10-27 06:09] LABS: HEMATOCRIT. 29.2 % (42.0-52.0); HEMOGLOBIN. 9.5 g/dL (14.0-18.0); MEAN CORPUSCULAR HEMOGLOBIN 26.2 pg (28.0-32.0); MEAN CORPUSCULAR VOLUME 80.1 fL (80.0-94.0); MEAN PLATELET VOLUME 8.8 fl (7.4-10.4); MONOCYTES % 13.7 % (2.0-8.0); NEUTROPHILS % 70.3 % (40.0-76.0); PLATELET 177 x1000/uL (130-400); RED BLOOD CELL COUNT 3.64 mill/uL (4.7-6.1); RED CELL DISTRIBUTION WIDTH 19.2 % (11.6-14.6)
[2019-10-27 06:14] LABS: PHOSPHORUS 4.1 mg/dL (2.5-4.9)
[2019-10-27 06:17] LABS: CREATINE KINASE 298 IU/L (39-308)
[2019-10-27] MEDS: DILTIAZEM HCL 60MG TABLET PO SCH ×3 (06:37→20:28)
[2019-10-27] MEDS: PANTOPRAZOLE SODIUM 40 MG/VIAL IV SCH (07:50)
[2019-10-27] MEDS: CALCIUM ACETATE 667 MG TABLET PO SCH ×3 (07:50→17:11)
[2019-10-27] MEDS: GUAIFENESIN 600MG ER TABLET PO SCH ×2 (07:59→20:27)
[2019-10-27] MEDS: NICOTINE 21MG PATCH TD SCH (07:59)
[2019-10-27] MEDS ORDERED: PHENOL/SODIUM PHENOLATE 1.4% SRPAY 177ML MM PRN (12:00)
[2019-10-27] MEDS: ENOXAPARIN 80MG/0.8ML SYR SUBCUT SCH (14:31)
[2019-10-27] MEDS: ACETAMINOPHEN 325MG TABLET PO PRN (17:11)
[2019-10-28] VITALS (14 sets, daily range): BP systolic 107–149; BP diastolic 44–87
[2019-10-28] MEDS: IPRATROPIUM BROMIDE (0.02%) 0.5MG/2.5ML NEB HHN SCH ×2 (02:55→08:55)
[2019-10-28 05:25] LABS: HEMATOCRIT. 30.3 % (42.0-52.0); HEMOGLOBIN. 9.9 g/dL (14.0-18.0); MEAN CORPUSCULAR VOLUME 79.9 fL (80.0-94.0); MEAN PLATELET VOLUME 8.8 fl (7.4-10.4); PLATELET 175 x1000/uL (130-400); RED BLOOD CELL COUNT 3.79 mill/uL (4.7-6.1); RED CELL DISTRIBUTION WIDTH 18.7 % (11.6-14.6)
[2019-10-28 05:33] LABS: CHLORIDE 100 mEq/L (98-107)
[2019-10-28] MEDS: INSULIN LISPRO 100 UNITS/ML SUBCUT SCH ×2 (06:00→12:52)
[2019-10-28 06:01] LABS: CREATINE KINASE 192 IU/L (39-308)
[2019-10-28] MEDS: BLOOD SUGAR DIAGNOSTIC STRIP TEST SCH ×2 (06:44→12:46)
[2019-10-28] MEDS: DILTIAZEM HCL 60MG TABLET PO SCH ×2 (06:46→13:04)
[2019-10-28 08:02] LABS: PLATELET ESTIMATE NORMAL
[2019-10-28] MEDS: GUAIFENESIN 600MG ER TABLET PO SCH (08:06)
[2019-10-28] MEDS: PANTOPRAZOLE SODIUM 40 MG/VIAL IV SCH (08:07)
[2019-10-28] MEDS: NICOTINE 21MG PATCH TD SCH (08:07)
[2019-10-28] MEDS: CALCIUM ACETATE 667 MG TABLET PO SCH ×2 (08:07→12:51)
[2019-10-28] MEDS ORDERED: APIXABAN 5 MG TABLET PO SCH (10:30)
== END 2019-10-28 14:13 | disposition home or self-care (01) | DRG 208 ==
LOC: MICUNO 21:23 → EEVIPCON 21:23
PROVIDERS: ADMIT Hospitalist; ATTEND Hospitalist
PROC: 5A1935Z Respiratory Ventilation, Less than 24 Consecutive Hours (ICD-10-PCS; principal; 2019-10-24)
PROC: 0BH17EZ Insertion of Endotracheal Airway into Trachea, Via Natural or Artificial Opening (ICD-10-PCS; 2019-10-24)
PROC: 5A1D70Z Performance of Urinary Filtration, Intermittent, Less than 6 Hours Per Day (ICD-10-PCS; 2019-10-25)
PROC: 5A1D70Z Performance of Urinary Filtration, Intermittent, Less than 6 Hours Per Day (ICD-10-PCS; 2019-10-27)
PROC: 5A09357 Assistance with Respiratory Ventilation, Less than 24 Consecutive Hours, Continuous Positive Airway Pressure (ICD-10-PCS; 2019-10-27)
DX: J96.01 Acute respiratory failure with hypoxia (principal); N18.6 End stage renal disease; G93.41 Metabolic encephalopathy; E43 Unspecified severe protein-calorie malnutrition; I50.33 Acute on chronic diastolic (congestive) heart failure; I13.2 Hypertensive heart and chronic kidney disease with heart failure and with stage 5 chronic kidney disease, or end stage renal disease; L03.115 Cellulitis of right lower limb; I48.92 Unspecified atrial flutter; N25.81 Secondary hyperparathyroidism of renal origin; E87.2 Acidosis; E87.5 Hyperkalemia; E78.5 Hyperlipidemia, unspecified; I48.0 Paroxysmal atrial fibrillation; N28.1 Cyst of kidney, acquired; D72.819 Decreased white blood cell count, unspecified; E11.22 Type 2 diabetes mellitus with diabetic chronic kidney disease; F17.210 Nicotine dependence, cigarettes, uncomplicated; I07.1 Rheumatic tricuspid insufficiency; J44.9 Chronic obstructive pulmonary disease, unspecified; R74.8 Abnormal levels of other serum enzymes; R74.0 Nonspecific elevation of levels of transaminase and lactic acid dehydrogenase [LDH]; E83.39 Other disorders of phosphorus metabolism; D72.1 Eosinophilia; E11.51 Type 2 diabetes mellitus with diabetic peripheral angiopathy without gangrene; D63.8 Anemia in other chronic diseases classified elsewhere; Z79.4 Long term (current) use of insulin; Z82.3 Family history of stroke; Z82.49 Family history of ischemic heart disease and other diseases of the circulatory system; Z83.3 Family history of diabetes mellitus; Z91.81 History of falling; Z99.2 Dependence on renal dialysis; Z68.24 Body mass index [BMI] 24.0-24.9, adult
CPT/HCPCS: 36415; 36600; 71045; 73702; 73718; 80053; 80061; 80202; 82140; 82248; 82375; 82550; 82553; 82805; 82962; 83036; 83605; 83735; 84100; 84443; 84481; 84484; 85025; 86705; 86709; 86803; 87340; 93005; 93306; 93922; 93970; 94002; 94003; 94640; 97116; 97162; C9113; J0885; J1650; J1815; J2270; J2543; J3370; J3490; J7042; J7060; P9047

== ENCOUNTER → 2020-04-24 | Outpatient (CLI) | payer BC ==
[~2020-04-24] MED LIST changes: +CALC667C MT; +DILT180C51 MT; -EPOE200014 SUBCUT; -GLIM4TAB36 PO; +LINA5TAB PO; +REGADENOSON 0.4 MG/5 ML IV ONE; -SODI650T PO
== END | disposition home or self-care (01) ==
LOC: NM 07:42
PROVIDERS: ATTEND Specialist
DX: I48.91 Unspecified atrial fibrillation (principal)
CPT/HCPCS: 78452; 93017; A9500; J2785

== ENCOUNTER → 2020-06-19 | Outpatient (CLI) | payer BC ==
[~2020-06-19] MED LIST changes: -REGADENOSON 0.4 MG/5 ML IV ONE
[2020-06-19 08:34] LABS: CHLORIDE 97 mEq/L (98-107)
[2020-06-19 08:43] LABS: LDL CHOLESTEROL 155 mg/dL (5-100)
[2020-06-19 08:45] LABS: HDL CHOLESTEROL 45 mg/dL (40-59); T4 FREE 1.37 ng/dL (0.76-1.46)
[2020-06-19 09:08] LABS: HEMATOCRIT. 37.1 % (42.0-52.0); HEMOGLOBIN. 12.3 g/dL (14.0-18.0); MEAN CORPUSCULAR HEMOGLOBIN 27.6 pg (28.0-32.0); MEAN CORPUSCULAR VOLUME 83.5 fL (80.0-94.0); PLATELET 324 x1000/uL (130-400); RED BLOOD CELL COUNT 4.44 mill/uL (4.7-6.1); RED CELL DISTRIBUTION WIDTH 18.1 % (11.6-14.6)
[2020-06-19 17:47] LABS: PLATELET ESTIMATE NORMAL
== END | disposition home or self-care (01) ==
LOC: LAB 07:45
PROVIDERS: ATTEND Specialist
DX: E78.2 Mixed hyperlipidemia (principal); E55.9 Vitamin D deficiency, unspecified; D64.9 Anemia, unspecified; E11.29 Type 2 diabetes mellitus with other diabetic kidney complication
CPT/HCPCS: 36415; 80053; 80061; 82306; 83036; 84439; 84443; 84481; 85025

== ENCOUNTER 2020-07-26 11:19 | Inpatient (IN) | payer BC, MEDICARE ==
[~2020-07-26] VITALS: Ht 167.6 cm; Wt 70.3 kg
[2020-07-26] MEDS ORDERED: MAGNESIUM CITRATE 300ML SOLUTION PO ONE (12:00)
[2020-07-26 12:29] LABS: HEMATOCRIT. 30.7 % (42.0-52.0); HEMOGLOBIN. 10.2 g/dL (14.0-18.0); MEAN CORPUSCULAR HEMOGLOBIN 27.5 pg (28.0-32.0); MEAN CORPUSCULAR VOLUME 82.5 fL (80.0-94.0); MEAN PLATELET VOLUME 7.8 fl (7.4-10.4); PLATELET 204 x1000/uL (130-400); RED BLOOD CELL COUNT 3.72 mill/uL (4.7-6.1); RED CELL DISTRIBUTION WIDTH 17.5 % (11.6-14.6)
[2020-07-26] MEDS ORDERED: FUROSEMIDE 100MG/10ML VIAL IVP NR (12:30)
[2020-07-26 12:34] LABS: CHLORIDE 90 mEq/L (98-107)
[2020-07-26 13:25] LABS: PLATELET ESTIMATE NORMAL
[2020-07-26] MEDS ORDERED: SIMETHICONE 40 MG/0.6 ML 30ML PO NR (15:00)
[2020-07-26] MEDS ORDERED: SIMETHICONE 80MG TABLET CHEW PO NR (15:00)
[2020-07-26 16:00] VITALS: BP 131/77
[2020-07-26] MEDS ORDERED: DEXTROSE 50% WATER 50ML SYRINGE IV PRN (17:00)
[2020-07-26] MEDS ORDERED: GUAIFENESIN 200MG/10ML SUGAR FREE UDC PO PRN (17:00)
[2020-07-26] MEDS ORDERED: CLONIDINE 0.1MG TABLET PO PRN (17:00)
[2020-07-26] MEDS ORDERED: ONDANSETRON HCL 4MG/2ML INJ IV PRN (17:00)
[2020-07-26] MEDS ORDERED: ACETAMINOPHEN 325MG TABLET PO PRN ×2 (17:00)
[2020-07-26] MEDS ORDERED: DIPHENHYDRAMINE 50MG/ML VIAL IV PRN (17:00)
[2020-07-26] MEDS ORDERED: MAGNESIUM/ALUMINUM HYDROXIDE/SIMETHICONE 30ML UDC PO PRN (17:00)
[2020-07-26] MEDS: BLOOD SUGAR DIAGNOSTIC STRIP TEST SCH ×2 (17:20→20:34)
[2020-07-26] MEDS: INSULIN LISPRO 100 UNITS/ML SUBCUT SCH ×2 (17:50→20:33)
[2020-07-26 18:29] VITALS: BP 150/66
[2020-07-26] MEDS ORDERED: PANTOPRAZOLE SODIUM 40 MG/VIAL IV SCH (18:30)
[2020-07-26] MEDS: APIXABAN 5 MG TABLET PO SCH (19:01)
[2020-07-26] MEDS: SIMETHICONE 80MG TABLET CHEW PO SCH ×2 (19:01→20:32)
[2020-07-26 20:00] VITALS: BP 136/71
[2020-07-26] MEDS ORDERED: ZOLPIDEM TARTRATE 5MG TABLET PO PRN (21:00)
[2020-07-26] MEDS: DILTIAZEM HCL 60MG TABLET PO SCH (21:31)
[2020-07-26] MEDS: HYDRALAZINE HCL 10MG TABLET PO SCH (21:32)
[2020-07-26] MEDS: SODIUM CHLORIDE 0.9% INJ 3ML FLUSH IVF SCH (21:32)
[2020-07-26] MEDS: PANTOPRAZOLE SODIUM 40 MG/VIAL IV SCH (21:50)
[2020-07-27] VITALS (7 sets, daily range): BP systolic 138–152; BP diastolic 54–88
[2020-07-27] MEDS: HYDRALAZINE HCL 10MG TABLET PO SCH ×2 (06:00→13:47)
[2020-07-27] MEDS: DILTIAZEM HCL 60MG TABLET PO SCH ×2 (06:01→13:47)
[2020-07-27] MEDS: SODIUM CHLORIDE 0.9% INJ 3ML FLUSH IVF SCH ×2 (06:01→13:33)
[2020-07-27] MEDS: BLOOD SUGAR DIAGNOSTIC STRIP TEST SCH ×3 (06:38→17:30)
[2020-07-27 07:15] LABS: HEMATOCRIT. 28.3 % (42.0-52.0); HEMOGLOBIN. 9.4 g/dL (14.0-18.0); MEAN CORPUSCULAR HEMOGLOBIN 27.6 pg (28.0-32.0); MEAN CORPUSCULAR VOLUME 82.7 fL (80.0-94.0); MEAN PLATELET VOLUME 7.7 fl (7.4-10.4); PLATELET 182 x1000/uL (130-400); RED BLOOD CELL COUNT 3.42 mill/uL (4.7-6.1); RED CELL DISTRIBUTION WIDTH 17.4 % (11.6-14.6)
[2020-07-27] MEDS ORDERED: LORAZEPAM 2MG/ML CPJ IV NR (07:15)
[2020-07-27] MEDS ORDERED: GLYBURIDE 5MG TABLET PO SCH (07:20)
[2020-07-27 07:36] LABS: PHOSPHORUS 7.5 mg/dL (2.5-4.9)
[2020-07-27] MEDS: INSULIN LISPRO 100 UNITS/ML SUBCUT SCH ×3 (07:47→17:30)
[2020-07-27] MEDS ORDERED: LINAGLIPTIN 5MG TABLET PO SCH (09:00)
[2020-07-27] MEDS: PANTOPRAZOLE SODIUM 40 MG/VIAL IV SCH (09:34)
[2020-07-27] MEDS: APIXABAN 5 MG TABLET PO SCH ×2 (09:34→17:00)
[2020-07-27] MEDS: SIMETHICONE 80MG TABLET CHEW PO SCH ×3 (09:35→17:50)
[2020-07-27 10:43] LABS: PLATELET ESTIMATE NORMAL
[2020-07-27] MEDS ORDERED: EPOETIN ALFA-EPBX 10,000 UNIT/ML VIAL SUBCUT SCH (21:00)
[2020-07-28] MEDS ORDERED: COR12 MT (13:02)
[2020-07-28] MEDS ORDERED: HYDR-4134 MT (13:02)
[2020-07-28] MEDS ORDERED: SACU1TAB MT (13:02)
[2020-07-28] MEDS ORDERED: APIX5TAB MT (13:02)
[2020-07-28] MEDS ORDERED: GLIP5TAB12 MT (13:02)
== END 2020-07-27 17:40 | disposition home or self-care (01) | DRG 391 ==
LOC: ER 11:19 → 6WST 12:18 → ENRESERV 13:44
PROVIDERS: ADMIT Internal Medicine; ATTEND Internal Medicine
PROC: 5A1D70Z Performance of Urinary Filtration, Intermittent, Less than 6 Hours Per Day (ICD-10-PCS; principal; 2020-07-26)
PROC: 5A1D70Z Performance of Urinary Filtration, Intermittent, Less than 6 Hours Per Day (ICD-10-PCS; 2020-07-27)
DX: K59.00 Constipation, unspecified (principal); N18.6 End stage renal disease; I13.2 Hypertensive heart and chronic kidney disease with heart failure and with stage 5 chronic kidney disease, or end stage renal disease; J98.11 Atelectasis; K62.5 Hemorrhage of anus and rectum; N25.81 Secondary hyperparathyroidism of renal origin; R18.8 Other ascites; K80.20 Calculus of gallbladder without cholecystitis without obstruction; E11.22 Type 2 diabetes mellitus with diabetic chronic kidney disease; E78.5 Hyperlipidemia, unspecified; E88.09 Other disorders of plasma-protein metabolism, not elsewhere classified; F17.200 Nicotine dependence, unspecified, uncomplicated; R14.0 Abdominal distension (gaseous); I48.0 Paroxysmal atrial fibrillation; I50.9 Heart failure, unspecified; D63.1 Anemia in chronic kidney disease; E87.8 Other disorders of electrolyte and fluid balance, not elsewhere classified; N28.1 Cyst of kidney, acquired; Z79.01 Long term (current) use of anticoagulants; Z82.49 Family history of ischemic heart disease and other diseases of the circulatory system; Z99.2 Dependence on renal dialysis
CPT/HCPCS: 36415; 71045; 71275; 74177; 74181; 76700; 80048; 80053; 80076; 82962; 83735; 84100; 84484; 85025; 93005; 99285; C9113; J0885; J1815; J1940; J2060; Q9967

== ENCOUNTER 2020-07-28 06:04 | Inpatient (IN) | payer BC, MEDICARE ==
[2020-07-28] VITALS (7 sets, daily range): BP systolic 125–178; BP diastolic 61–100
[~2020-07-28] VITALS: Ht 167.6 cm; Wt 74.4 kg
[2020-07-28] MEDS ORDERED: ALBUTEROL (0.083%) 2.5MG/3ML NEB HHN STA (06:28)
[2020-07-28] MEDS ORDERED: NITROGLYCERIN 0.1MG/HR PATCH TOP ONE (06:30)
[2020-07-28] MEDS ORDERED: HYDRALAZINE HCL 100MG TABLET PO ONE (06:30)
[2020-07-28 08:11] LABS: HEMATOCRIT. 35.6 % (42.0-52.0); HEMOGLOBIN. 11.6 g/dL (14.0-18.0); MEAN CORPUSCULAR HEMOGLOBIN 27.1 pg (28.0-32.0); MEAN CORPUSCULAR VOLUME 83.4 fL (80.0-94.0); MEAN PLATELET VOLUME 8.2 fl (7.4-10.4); PLATELET 282 x1000/uL (130-400); RED BLOOD CELL COUNT 4.27 mill/uL (4.7-6.1); RED CELL DISTRIBUTION WIDTH 17.5 % (11.6-14.6)
[2020-07-28 08:15] LABS: CHLORIDE 93 mEq/L (98-107)
[2020-07-28 08:40] LABS: PLATELET ESTIMATE NORMAL
[2020-07-28] MEDS ORDERED: DICYCLOMINE 10 MG/5 ML ORAL SYR PO STA (09:39)
[2020-07-28] MEDS ORDERED: MAGNESIUM/ALUMINUM HYDROXIDE/SIMETHICONE 30ML UDC PO STA (09:39)
[2020-07-28] MEDS ORDERED: VISCOUS LIDOCAINE 2% 15 ML UDC PO STA (09:39)
[2020-07-28] MEDS ORDERED: APIX5TAB MT (13:02)
[2020-07-28] MEDS ORDERED: SACU1TAB MT (13:02)
[2020-07-28] MEDS ORDERED: GLIP5TAB12 MT (13:02)
[2020-07-28] MEDS ORDERED: COR12 MT (13:02)
[2020-07-28] MEDS ORDERED: HYDR-4134 MT (13:02)
[2020-07-28] MEDS ORDERED: ONDANSETRON HCL 4MG/2ML INJ IV PRN ×2 (14:00→14:45)
[2020-07-28] MEDS ORDERED: AMLODIPINE 5MG TABLET PO SCH (14:15)
[2020-07-28] MEDS ORDERED: MAGNESIUM/ALUMINUM HYDROXIDE/SIMETHICONE 30ML UDC PO PRN (14:45)
[2020-07-28] MEDS ORDERED: DEXTROSE 50% WATER 50ML SYRINGE IV PRN (14:45)
[2020-07-28] MEDS ORDERED: DIPHENHYDRAMINE 50MG/ML VIAL IV PRN (14:45)
[2020-07-28] MEDS ORDERED: ZOLPIDEM TARTRATE 5MG TABLET PO PRN (14:45)
[2020-07-28] MEDS ORDERED: ACETAMINOPHEN 325MG TABLET PO PRN ×2 (14:45)
[2020-07-28] MEDS ORDERED: IPRATROPIUM/ALBUTEROL 0.5-3(2.5)MG/3ML NEB HHN PRN (14:45)
[2020-07-28] MEDS ORDERED: CLONIDINE 0.1MG TABLET PO PRN (14:45)
[2020-07-28] MEDS ORDERED: CEFEPIME 1,000 MG in DEXTROSE 5% WATER 50 ML IV SCH (15:00)
[2020-07-28] MEDS: IPRATROPIUM/ALBUTEROL 0.5-3(2.5)MG/3ML NEB HHN SCH ×2 (16:31→21:10)
[2020-07-28] MEDS ORDERED: SIMETHICONE 80MG TABLET CHEW PO PRN (17:15)
[2020-07-28] MEDS: INSULIN LISPRO 100 UNITS/ML SUBCUT SCH ×2 (18:00→21:25)
[2020-07-28] MEDS: BLOOD SUGAR DIAGNOSTIC STRIP TEST SCH ×2 (18:09→20:53)
[2020-07-28] MEDS: APIXABAN 5 MG TABLET PO SCH (18:10)
[2020-07-28] MEDS ORDERED: DILTIAZEM HCL 60MG TABLET PO SCH (18:30)
[2020-07-28] MEDS: CARVEDILOL 12.5MG TABLET PO SCH (18:30)
[2020-07-28] MEDS: SIMETHICONE 80MG TABLET CHEW PO SCH ×2 (18:38→20:53)
[2020-07-28] MEDS: AMLODIPINE 5MG TABLET PO SCH (20:53)
[2020-07-28] MEDS ORDERED: CEFEPIME HCL 1000MG/VIAL INJ IM SCH (21:00)
[2020-07-28] MEDS ORDERED: PANTOPRAZOLE 40MG DR TABLET PO SCH (21:00)
[2020-07-28] MEDS: CEFEPIME 1,000 MG in DEXTROSE 5% WATER 50 ML IV SCH (22:32)
[2020-07-28] MEDS: LACTULOSE 20G/30ML UDC PO SCH (22:39)
[2020-07-28] MEDS: DILTIAZEM HCL 60MG TABLET PO SCH (22:40)
[2020-07-28] MEDS: HYDRALAZINE HCL 50MG TABLET PO SCH (22:40)
[2020-07-28] MEDS: SODIUM CHLORIDE 0.9% INJ 3ML FLUSH IVF SCH (22:41)
[2020-07-29] VITALS (12 sets, daily range): BP systolic 112–158; BP diastolic 61–95
[2020-07-29] MEDS: IPRATROPIUM/ALBUTEROL 0.5-3(2.5)MG/3ML NEB HHN SCH ×6 (01:40→20:16)
[2020-07-29] MEDS: GLIPIZIDE 5MG TABLET PO SCH (06:31)
[2020-07-29] MEDS: LACTULOSE 20G/30ML UDC PO SCH ×3 (06:31→21:45)
[2020-07-29] MEDS: DILTIAZEM HCL 60MG TABLET PO SCH ×3 (06:32→21:45)
[2020-07-29] MEDS: HYDRALAZINE HCL 50MG TABLET PO SCH ×3 (06:32→21:46)
[2020-07-29] MEDS: SODIUM CHLORIDE 0.9% INJ 3ML FLUSH IVF SCH ×3 (06:32→20:55)
[2020-07-29 06:38] LABS: HEMATOCRIT. 31.1 % (42.0-52.0); HEMOGLOBIN. 10.1 g/dL (14.0-18.0); MEAN CORPUSCULAR HEMOGLOBIN 27.2 pg (28.0-32.0); MEAN CORPUSCULAR VOLUME 83.8 fL (80.0-94.0); MEAN PLATELET VOLUME 8.3 fl (7.4-10.4); PLATELET 247 x1000/uL (130-400); RED BLOOD CELL COUNT 3.71 mill/uL (4.7-6.1); RED CELL DISTRIBUTION WIDTH 17.4 % (11.6-14.6)
[2020-07-29 07:00] LABS: PHOSPHORUS 5.2 mg/dL (2.5-4.9)
[2020-07-29] MEDS: BLOOD SUGAR DIAGNOSTIC STRIP TEST SCH ×4 (07:47→20:55)
[2020-07-29] MEDS: INSULIN LISPRO 100 UNITS/ML SUBCUT SCH ×4 (07:49→21:45)
[2020-07-29] MEDS: PANTOPRAZOLE SODIUM 40 MG/VIAL IV SCH (08:42)
[2020-07-29] MEDS: SIMETHICONE 80MG TABLET CHEW PO SCH ×4 (08:43→20:54)
[2020-07-29] MEDS: LINAGLIPTIN 5MG TABLET PO SCH (09:00)
[2020-07-29] MEDS: AMLODIPINE 5MG TABLET PO SCH ×2 (09:00→20:54)
[2020-07-29] MEDS: CARVEDILOL 12.5MG TABLET PO SCH ×2 (09:00→16:51)
[2020-07-29] MEDS: APIXABAN 5 MG TABLET PO SCH ×2 (09:00→20:54)
[2020-07-29 13:49] LABS: PLATELET ESTIMATE NORMAL
[2020-07-29] MEDS: CEFEPIME 1,000 MG in DEXTROSE 5% WATER 50 ML IV SCH (21:44)
[2020-07-30] VITALS (13 sets, daily range): BP systolic 138–167; BP diastolic 68–97
[2020-07-30] MEDS: IPRATROPIUM/ALBUTEROL 0.5-3(2.5)MG/3ML NEB HHN SCH ×6 (00:56→20:00)
[2020-07-30] MEDS: SODIUM CHLORIDE 0.9% INJ 3ML FLUSH IVF SCH ×2 (05:32→13:33)
[2020-07-30] MEDS: DILTIAZEM HCL 60MG TABLET PO SCH ×2 (05:32→14:00)
[2020-07-30] MEDS: HYDRALAZINE HCL 50MG TABLET PO SCH ×2 (05:32→14:00)
[2020-07-30] MEDS: LACTULOSE 20G/30ML UDC PO SCH ×2 (05:33→13:29)
[2020-07-30] MEDS: GLIPIZIDE 5MG TABLET PO SCH (06:37)
[2020-07-30] MEDS: BLOOD SUGAR DIAGNOSTIC STRIP TEST SCH ×4 (07:30→21:40)
[2020-07-30 07:40] LABS: HEMATOCRIT. 31.7 % (42.0-52.0); HEMOGLOBIN. 10.3 g/dL (14.0-18.0); MEAN CORPUSCULAR HEMOGLOBIN 27.2 pg (28.0-32.0); MEAN CORPUSCULAR VOLUME 84.1 fL (80.0-94.0); MEAN PLATELET VOLUME 8.2 fl (7.4-10.4); PLATELET 273 x1000/uL (130-400); RED BLOOD CELL COUNT 3.77 mill/uL (4.7-6.1); RED CELL DISTRIBUTION WIDTH 17.6 % (11.6-14.6)
[2020-07-30] MEDS: SIMETHICONE 80MG TABLET CHEW PO SCH ×4 (07:52→21:40)
[2020-07-30] MEDS: INSULIN LISPRO 100 UNITS/ML SUBCUT SCH ×4 (08:00→21:00)
[2020-07-30 08:36] LABS: PHOSPHORUS 4.2 mg/dL (2.5-4.9)
[2020-07-30] MEDS: AMLODIPINE 5MG TABLET PO SCH ×2 (09:00→21:39)
[2020-07-30] MEDS: CARVEDILOL 12.5MG TABLET PO SCH ×2 (09:00→17:00)
[2020-07-30] MEDS: PANTOPRAZOLE SODIUM 40 MG/VIAL IV SCH (09:59)
[2020-07-30] MEDS: APIXABAN 5 MG TABLET PO SCH ×2 (09:59→21:40)
[2020-07-30] MEDS: LINAGLIPTIN 5MG TABLET PO SCH (09:59)
[2020-07-30 11:10] LABS: BG BASE EXCESS -0.8 mmol/L (-2.0-2.0); BG CARBOXYHEMOGLOBIN 0.7 % (0.5-1.5); BG DEOXYHEMOGLOBIN 5.1 % (0.0-5.0); BG FRACTION INSPIRED OXYGEN 21; BG METHEMOGLOBIN 0.4 % (0.0-1.5); BG OXYGEN SATURATION 94.8 % (92.0-98.5); BG OXYHEMOGLOBIN 93.8 % (94.0-97.0); BG PH 7.436 (7.350-7.450); BG PO2 79.2 mmHg (75.0-100.0); BG SAMPLE SITE RIGHT RADIAL; BG TOTAL HEMOGLOBIN 11.2 g/dL (12.0-18.0); BG VENT MODE ROOM AIR
[2020-07-30 17:40] LABS: PLATELET ESTIMATE NORMAL
== END 2020-07-30 22:09 | disposition home or self-care (01) | DRG 291 ==
LOC: ER 06:04 → 5EST 09:29 → EDBEDREQ 09:42 → EDBEDREQSVC 09:42 → EDBEDREQTM 09:42 → ENRESERV 10:59 → 5EST 16:48
PROVIDERS: ADMIT Internal Medicine; ATTEND Internal Medicine
PROC: 5A1D70Z Performance of Urinary Filtration, Intermittent, Less than 6 Hours Per Day (ICD-10-PCS; principal; 2020-07-28)
PROC: 5A1D70Z Performance of Urinary Filtration, Intermittent, Less than 6 Hours Per Day (ICD-10-PCS; 2020-07-29)
DX: I13.2 Hypertensive heart and chronic kidney disease with heart failure and with stage 5 chronic kidney disease, or end stage renal disease (principal); J96.01 Acute respiratory failure with hypoxia; N18.6 End stage renal disease; I31.3 Pericardial effusion (noninflammatory); E46 Unspecified protein-calorie malnutrition; K62.5 Hemorrhage of anus and rectum; D68.69 Other thrombophilia; R18.8 Other ascites; J91.8 Pleural effusion in other conditions classified elsewhere; N25.81 Secondary hyperparathyroidism of renal origin; K80.20 Calculus of gallbladder without cholecystitis without obstruction; I48.0 Paroxysmal atrial fibrillation; E11.22 Type 2 diabetes mellitus with diabetic chronic kidney disease; E78.5 Hyperlipidemia, unspecified; D63.1 Anemia in chronic kidney disease; E11.43 Type 2 diabetes mellitus with diabetic autonomic (poly)neuropathy; F17.210 Nicotine dependence, cigarettes, uncomplicated; I07.1 Rheumatic tricuspid insufficiency; I50.9 Heart failure, unspecified; K31.84 Gastroparesis; K59.09 Other constipation; K64.9 Unspecified hemorrhoids; R16.0 Hepatomegaly, not elsewhere classified; J44.9 Chronic obstructive pulmonary disease, unspecified; E87.8 Other disorders of electrolyte and fluid balance, not elsewhere classified; D64.9 Anemia, unspecified; N28.1 Cyst of kidney, acquired; Z79.01 Long term (current) use of anticoagulants; Z99.2 Dependence on renal dialysis; Z79.899 Other long term (current) drug therapy; Z99.81 Dependence on supplemental oxygen
CPT/HCPCS: 36415; 36600; 71045; 80048; 80053; 82375; 82805; 82962; 83735; 83880; 84100; 84484; 85025; 93005; 93306; 94640; 99285; C9113; J0692; J1815; J7060

== ENCOUNTER → 2020-11-20 | Outpatient (CLI) | payer BC, MEDICARE ==
[~2020-11-20] MED LIST changes: +APIX5TAB MT; -ATOR-2 PO; -CALC667C MT; +COR12 MT; -FURO-151 PO; +GLIP5TAB12 MT; +HYDR-4134 MT; -LOSA100T32 PO; -METO-411 PO; +SACU1TAB MT
[2020-11-20 09:25] LABS: HEMATOCRIT. 28.2 % (42.0-52.0); HEMOGLOBIN. 9.1 g/dL (14.0-18.0); MEAN CORPUSCULAR HEMOGLOBIN 26.2 pg (28.0-32.0); MEAN CORPUSCULAR VOLUME 81.4 fL (80.0-94.0); MEAN PLATELET VOLUME 7.6 fl (7.4-10.4); PLATELET 224 x1000/uL (130-400); RED BLOOD CELL COUNT 3.47 mill/uL (4.7-6.1); RED CELL DISTRIBUTION WIDTH 18.3 % (11.6-14.6)
[2020-11-20 09:26] LABS: CHLORIDE 95 mEq/L (98-107)
[2020-11-20 13:58] LABS: HDL CHOLESTEROL 45 mg/dL (40-59); LDL CHOLESTEROL 128 mg/dL (5-100)
[2020-11-20 16:02] LABS: PLATELET ESTIMATE NORMAL
== END | disposition home or self-care (01) ==
LOC: LAB 08:01
PROVIDERS: ATTEND Specialist
DX: E78.2 Mixed hyperlipidemia (principal); E55.9 Vitamin D deficiency, unspecified; E11.9 Type 2 diabetes mellitus without complications; D64.9 Anemia, unspecified
CPT/HCPCS: 36415; 80053; 80061; 82306; 83036; 84439; 84443; 85025

== ENCOUNTER → 2020-11-20 | Outpatient (CLI) | payer BC, MEDICARE | END | disposition home or self-care (01) | LOC: MRI 07:52 | PROVIDERS: ATTEND Internal Medicine Nephrology | DX: D18.09 Hemangioma of other sites (principal); R20.0 Anesthesia of skin | CPT/HCPCS: 72146; 72148 ==

== ENCOUNTER → 2021-02-28 | Outpatient (CLI) | payer BC ==
[2021-02-28 08:45] LABS: HEMATOCRIT. 38.8 % (42.0-52.0); HEMOGLOBIN. 12.9 g/dL (14.0-18.0); MEAN CORPUSCULAR HEMOGLOBIN 27.8 pg (28.0-32.0); MEAN CORPUSCULAR VOLUME 83.5 fL (80.0-94.0); MEAN PLATELET VOLUME 7.8 fl (7.4-10.4); PLATELET 228 x1000/uL (130-400); RED BLOOD CELL COUNT 4.65 mill/uL (4.7-6.1); RED CELL DISTRIBUTION WIDTH 20.6 % (11.6-14.6)
[2021-02-28 08:53] LABS: PARTIAL THROMBOPLASTIN TIME 37.8 sec (23.4-31.0); PROTHROMBIN TIME 11.2 sec (9.6-11.0)
[2021-02-28 16:50] LABS: PLATELET ESTIMATE NORMAL
== END | disposition home or self-care (01) ==
LOC: CCL 06:35 → LAB 06:55 → EDSTATUS 09:00
PROVIDERS: ATTEND Internal Medicine Clinical Cardiac Electrophysiology
DX: I48.0 Paroxysmal atrial fibrillation (principal); Z53.8 Procedure and treatment not carried out for other reasons; F17.210 Nicotine dependence, cigarettes, uncomplicated; Z79.899 Other long term (current) drug therapy; Z98.890 Other specified postprocedural states
CPT/HCPCS: 36415; 80048; 85025; 85610; 85730; Z7610

== ENCOUNTER 2021-03-31 15:46 | Inpatient (IN) | payer BC ==
[2021-03-31] VITALS (10 sets, daily range): BP systolic 100–163; BP diastolic 22–90
[~2021-03-31] VITALS: Ht 165.1 cm; Wt 65.3 kg
[~2021-03-31 15:46] MED LIST changes: +SUCR500T PO
[2021-03-31] MEDS ORDERED: VANCOMYCIN 1 G PREMIX 200 ML IV ONE (16:30)
[2021-03-31] MEDS ORDERED: LEVOFLOXACIN 750MG PREMIX 150 ML IV ONE (16:30)
[2021-03-31] MEDS ORDERED: PIPERACILLIN/TAZ 3.375G PREMIX 50 ML IV ONE (16:30)
[2021-03-31] MEDS ORDERED: SODIUM CHLORIDE 0.9% 1000ML BAG (SEPSIS BOLUS) IV ONE (16:30)
[2021-03-31] MEDS ORDERED: ALBUTEROL (0.083%) 2.5MG/3ML NEB HHN STA (16:38)
[2021-03-31] MEDS ORDERED: PREDNISONE 20MG TABLET PO STA (16:38)
[2021-03-31] MEDS ORDERED: IPRATROPIUM BROMIDE (0.02%) 0.5MG/2.5ML NEB HHN STA (16:38)
[2021-03-31 17:38] LABS: HEMATOCRIT. 30.6 % (42.0-52.0); HEMOGLOBIN. 10.4 g/dL (14.0-18.0); MEAN CORPUSCULAR HEMOGLOBIN 27.6 pg (28.0-32.0); MEAN CORPUSCULAR VOLUME 81.1 fL (80.0-94.0); MEAN PLATELET VOLUME 9.6 fl (7.4-10.4); PLATELET 175 x1000/uL (130-400); RED BLOOD CELL COUNT 3.77 mill/uL (4.7-6.1)
[2021-03-31 17:44] LABS: INR 1.2; PROTHROMBIN TIME 12.4 sec (9.6-11.0)
[2021-03-31 18:38] LABS: PLATELET ESTIMATE NORMAL
[2021-03-31] MEDS ORDERED: ACETAMINOPHEN 325MG TABLET PO ONE (19:30)
[2021-03-31 19:51] LABS: CHLORIDE 94 mEq/L (98-107)
[2021-03-31] MEDS ORDERED: ONDANSETRON HCL 4MG/2ML INJ IV PRN (20:15)
[2021-03-31] MEDS ORDERED: PIPERACILLIN/TAZ 3.375G PREMIX 50 ML IV SCH (20:15)
[2021-03-31] MEDS ORDERED: DIPHENHYDRAMINE 50MG/ML VIAL IV PRN (20:15)
[2021-03-31] MEDS ORDERED: DEXT 5%/0.45% NACL 1000ML 1,000 ML IV SCH (20:15)
[2021-03-31] MEDS ORDERED: GUAIFENESIN 200MG/10ML SUGAR FREE UDC PO PRN (20:15)
[2021-03-31] MEDS ORDERED: DEXTROSE 50% WATER 50ML SYRINGE IV PRN (20:15)
[2021-03-31] MEDS ORDERED: ACETAMINOPHEN 325MG TABLET PO PRN ×2 (20:15)
[2021-03-31] MEDS ORDERED: VANCOMYCIN 1 G PREMIX 200 ML IV SCH (20:15)
[2021-03-31] MEDS: INSULIN LISPRO 100 UNITS/ML SUBCUT SCH (21:00)
[2021-03-31] MEDS: BLOOD SUGAR DIAGNOSTIC STRIP TEST SCH (21:00)
[2021-03-31] MEDS ORDERED: HYDRALAZINE 20MG/ML VIAL IV PRN (22:45)
[2021-03-31] MEDS ORDERED: MORPHINE SULFATE 2 MG/ML CPJ (NOT FOR IM USE) IV PRN (22:45)
[2021-03-31] MEDS ORDERED: PHENYLEPHRINE 100 MG in DEXT 5% WATER 240 ML IV PRN (22:45)
[2021-03-31] MEDS: ENOXAPARIN 30MG/0.3ML SYR SUBCUT SCH (23:02)
[2021-03-31] MEDS: PANTOPRAZOLE SODIUM 40 MG/VIAL IV SCH (23:03)
[2021-04-01] VITALS (41 sets, daily range): BP systolic 109–161; BP diastolic 37–115
[2021-04-01] MEDS ORDERED: PIPERACILLIN/TAZOBACTAM 2.25G in DEXTROSE 5% WATER 50ML IV SCH (02:00)
[2021-04-01 05:42] LABS: HEMATOCRIT. 28.8 % (42.0-52.0); HEMOGLOBIN. 9.6 g/dL (14.0-18.0); MEAN CORPUSCULAR HEMOGLOBIN 27.4 pg (28.0-32.0); MEAN CORPUSCULAR VOLUME 81.7 fL (80.0-94.0); MEAN PLATELET VOLUME 10.1 fl (7.4-10.4); PLATELET 153 x1000/uL (130-400); RED BLOOD CELL COUNT 3.52 mill/uL (4.7-6.1); RED CELL DISTRIBUTION WIDTH 19.4 % (11.6-14.6)
[2021-04-01] MEDS: BLOOD SUGAR DIAGNOSTIC STRIP TEST SCH ×4 (05:44→20:36)
[2021-04-01] MEDS: INSULIN LISPRO 100 UNITS/ML SUBCUT SCH ×4 (05:44→20:35)
[2021-04-01 05:48] LABS: CHLORIDE 92 mEq/L (98-107)
[2021-04-01] MEDS: PANTOPRAZOLE SODIUM 40 MG/VIAL IV SCH (08:40)
[2021-04-01] MEDS: PIPERACILLIN/TAZOBACTAM 2.25G in DEXTROSE 5% WATER 50ML IV SCH ×2 (09:06→17:22)
[2021-04-01] MEDS ORDERED: AMLODIPINE 5MG TABLET PO NR (13:45)
[2021-04-01] MEDS ORDERED: DEXAMETHASONE 10 MG/ML VIAL IV NR (14:30)
[2021-04-01 17:10] LABS: PLATELET ESTIMATE NORMAL
[2021-04-01] MEDS ORDERED: VANCOMYCIN 750 MG PREMIX 150 ML IV NR (18:00)
[2021-04-01 18:45] LABS: HEPATITIS B SURFACE ANTIGEN NEGATIVE
[2021-04-01 19:15] LABS: HEPATITIS A AB IGM NEGATIVE (NEGATIVE)
[2021-04-01] MEDS: ENOXAPARIN 30MG/0.3ML SYR SUBCUT SCH (20:36)
[2021-04-01] MEDS ORDERED: EPOETIN ALFA-EPBX 10,000 UNIT/ML VIAL SUBCUT SCH (21:00)
[2021-04-01] MEDS ORDERED: NALOXONE HCL 0.4MG/ML VIAL IV PRN (21:30)
[2021-04-01] MEDS: DILTIAZEM HCL 60MG TABLET PO SCH (22:27)
[2021-04-01] MEDS: TEMAZEPAM 15MG CAPSULE PO PRN (22:58)
[2021-04-02] VITALS: BP 107/66
[2021-04-02] MEDS: PIPERACILLIN/TAZOBACTAM 2.25G in DEXTROSE 5% WATER 50ML IV SCH ×3 (01:47→18:29)
[2021-04-02 04:00] VITALS: BP 135/82
[2021-04-02] MEDS: DILTIAZEM HCL 60MG TABLET PO SCH ×3 (05:52→21:59)
[2021-04-02 07:15] LABS: CHLORIDE 100 mEq/L (98-107)
[2021-04-02 07:20] LABS: HEMATOCRIT. 32.2 % (42.0-52.0); HEMOGLOBIN. 10.9 g/dL (14.0-18.0); MEAN CORPUSCULAR HEMOGLOBIN 27.4 pg (28.0-32.0); MEAN CORPUSCULAR VOLUME 80.7 fL (80.0-94.0); RED BLOOD CELL COUNT 3.99 mill/uL (4.7-6.1); RED CELL DISTRIBUTION WIDTH 19.2 % (11.6-14.6)
[2021-04-02 07:31] LABS: PHOSPHORUS 5.4 mg/dL (2.5-4.9)
[2021-04-02] MEDS: INSULIN LISPRO 100 UNITS/ML SUBCUT SCH ×4 (07:50→22:02)
[2021-04-02 08:00] VITALS: BP 129/84
[2021-04-02] MEDS: BLOOD SUGAR DIAGNOSTIC STRIP TEST SCH ×4 (08:00→21:59)
[2021-04-02] MEDS ORDERED: AMLODIPINE 5MG TABLET PO SCH (09:00)
[2021-04-02] MEDS ORDERED: DEXAMETHASONE 10 MG/ML VIAL IV SCH (09:00)
[2021-04-02] MEDS: PANTOPRAZOLE SODIUM 40 MG/VIAL IV SCH (09:25)
[2021-04-02 12:00] VITALS: BP 124/77
[2021-04-02 14:31] LABS: MEAN PLATELET VOLUME 10.3 fl (7.4-10.4); PLATELET ESTIMATE NORMAL
[2021-04-02 14:32] LABS: PLATELET 142 x1000/uL (130-400)
[2021-04-02 16:00] VITALS: BP 135/57
[2021-04-02 20:00] VITALS: BP 116/97
[2021-04-02] MEDS: ENOXAPARIN 30MG/0.3ML SYR SUBCUT SCH (21:00)
[2021-04-02] MEDS: TEMAZEPAM 15MG CAPSULE PO PRN (21:55)
[2021-04-02] MEDS ORDERED: TIMO5DRO32 EACHEYE (22:10)
[2021-04-02] MEDS ORDERED: DORZ10DR9 EACHEYE (22:13)
[2021-04-02] MEDS ORDERED: BRIM.2 EACHEYE (22:14)
[2021-04-03] VITALS: BP 98/50
[2021-04-03] MEDS: PIPERACILLIN/TAZOBACTAM 2.25G in DEXTROSE 5% WATER 50ML IV SCH ×3 (02:56→17:54)
[2021-04-03 04:00] VITALS: BP 105/56
[2021-04-03] MEDS: DILTIAZEM HCL 60MG TABLET PO SCH ×2 (06:00→12:55)
[2021-04-03] MEDS: INSULIN LISPRO 100 UNITS/ML SUBCUT SCH ×3 (06:26→17:36)
[2021-04-03] MEDS: BLOOD SUGAR DIAGNOSTIC STRIP TEST SCH ×3 (06:27→17:26)
[2021-04-03 07:35] LABS: HEMOGLOBIN. 10.9 g/dL (14.0-18.0); MEAN CORPUSCULAR HEMOGLOBIN 27.1 pg (28.0-32.0); MEAN CORPUSCULAR VOLUME 81.7 fL (80.0-94.0); RED BLOOD CELL COUNT 4.03 mill/uL (4.7-6.1)
[2021-04-03 07:40] LABS: CHLORIDE 95 mEq/L (98-107)
[2021-04-03 07:51] LABS: PHOSPHORUS 7.2 mg/dL (2.5-4.9)
[2021-04-03 08:51] VITALS: BP 117/69
[2021-04-03] MEDS: PANTOPRAZOLE SODIUM 40 MG/VIAL IV SCH (09:28)
[2021-04-03 12:06] LABS: PLATELET 118 x1000/uL (130-400)
[2021-04-03 12:11] LABS: PLATELET ESTIMATE SLIGHTLY DECREASED
[2021-04-03] MEDS ORDERED: LINAGLIPTIN 5MG TABLET PO SCH (12:30)
[2021-04-03] MEDS ORDERED: GLIPIZIDE 5MG TABLET PO SCH (13:30)
[2021-04-03 16:00] VITALS: BP 135/80
[2021-04-03 19:49] VITALS: BP 117/79
== END 2021-04-03 20:10 | disposition home or self-care (01) | DRG 871 ==
LOC: ER 15:46 → EDBEDREQSVC 18:39 → EDBEDREQ 18:39 → ENRESERV 19:26 → CANRESERV 19:26 → EDBEDREQ 19:42 → EDBEDREQTM 19:51 → EDBEDREQSVC 19:51 → ENRESERV 20:59 → CVICU 21:52 → MICUSO 04-01 03:59 → 6WST 04-01 21:10
PROVIDERS: ADMIT Internal Medicine; ATTEND Internal Medicine
PROC: 5A1D70Z Performance of Urinary Filtration, Intermittent, Less than 6 Hours Per Day (ICD-10-PCS; principal; 2021-04-01)
PROC: 5A1D70Z Performance of Urinary Filtration, Intermittent, Less than 6 Hours Per Day (ICD-10-PCS; 2021-04-02)
DX: A41.89 Other specified sepsis (principal); N18.6 End stage renal disease; R65.21 Severe sepsis with septic shock; U07.1 COVID-19; E43 Unspecified severe protein-calorie malnutrition; I13.2 Hypertensive heart and chronic kidney disease with heart failure and with stage 5 chronic kidney disease, or end stage renal disease; E87.1 Hypo-osmolality and hyponatremia; I48.20 Chronic atrial fibrillation, unspecified; I48.92 Unspecified atrial flutter; I31.3 Pericardial effusion (noninflammatory); I43 Cardiomyopathy in diseases classified elsewhere; R18.8 Other ascites; N25.81 Secondary hyperparathyroidism of renal origin; K80.62 Calculus of gallbladder and bile duct with acute cholecystitis without obstruction; I50.9 Heart failure, unspecified; D64.9 Anemia, unspecified; I48.0 Paroxysmal atrial fibrillation; N28.1 Cyst of kidney, acquired; D69.6 Thrombocytopenia, unspecified; E78.5 Hyperlipidemia, unspecified; E11.22 Type 2 diabetes mellitus with diabetic chronic kidney disease; F17.210 Nicotine dependence, cigarettes, uncomplicated; I35.8 Other nonrheumatic aortic valve disorders; I07.1 Rheumatic tricuspid insufficiency; I95.9 Hypotension, unspecified; J44.9 Chronic obstructive pulmonary disease, unspecified; K59.00 Constipation, unspecified; Z79.01 Long term (current) use of anticoagulants; Z79.4 Long term (current) use of insulin; Z68.24 Body mass index [BMI] 24.0-24.9, adult; Z82.49 Family history of ischemic heart disease and other diseases of the circulatory system; Z83.3 Family history of diabetes mellitus; Z99.2 Dependence on renal dialysis; Z79.899 Other long term (current) drug therapy
CPT/HCPCS: 36415; 71045; 74176; 74181; 76700; 80053; 80202; 82962; 83036; 83605; 83735; 84100; 84145; 84484; 85025; 86140; 86705; 86709; 86803; 87340; 87426; 93005; 93306; 94640; 99285; C9113; J0885; J1100; J1650; J1815; J1956; J2543; J3370; J7030; J7060; J7512; U0003; U0005

== ENCOUNTER 2021-04-08 11:11 | Inpatient (IN) | payer BC, MEDICARE ==
[~2021-04-08] VITALS: Ht 165.1 cm; Wt 81.8 kg
[2021-04-08 13:14] LABS: HEMATOCRIT. 27.6 % (42.0-52.0); HEMOGLOBIN. 9.4 g/dL (14.0-18.0); MEAN CORPUSCULAR HEMOGLOBIN 27.2 pg (28.0-32.0); MEAN CORPUSCULAR VOLUME 79.5 fL (80.0-94.0); MEAN PLATELET VOLUME 9.8 fl (7.4-10.4); PLATELET 78 x1000/uL (130-400); RED BLOOD CELL COUNT 3.47 mill/uL (4.7-6.1); RED CELL DISTRIBUTION WIDTH 19.6 % (11.6-14.6)
[2021-04-08 13:21] LABS: CHLORIDE 92 mEq/L (98-107)
[2021-04-08 13:25] LABS: INR 1.1; PROTHROMBIN TIME 11.6 sec (9.6-11.0)
[2021-04-08] MEDS ORDERED: DEXTROSE 50% WATER 50ML SYRINGE IV ONE (13:45)
[2021-04-08 13:46] LABS: NUCLEATED RED BLOOD CELLS 1 /100 WBC; PLATELET ESTIMATE DECREASED
[2021-04-08] MEDS ORDERED: DEXT 5%/0.9% NACL 1,000 ML IV ONE (15:00)
[2021-04-08] MEDS ORDERED: PIPERACILLIN/TAZOBACTAM 3.375GM/50ML PREMIX IV SCH (15:00)
[2021-04-08] MEDS ORDERED: VANCOMYCIN 1 G PREMIX 200 ML IV NR (15:00)
[2021-04-08] MEDS ORDERED: PIPERACILLIN/TAZOBACTAM 2.25G in DEXTROSE 5% WATER 50ML IV SCH ×2 (15:00→18:00)
[2021-04-08 15:58] LABS: HEPATITIS B SURFACE ANTIGEN NEGATIVE
[2021-04-08 16:00] VITALS: BP 133/77
[2021-04-08 16:28] LABS: HEPATITIS A AB IGM NEGATIVE (NEGATIVE)
[2021-04-08 16:30] VITALS: BP 129/70
[2021-04-08] MEDS ORDERED: BLOOD SUGAR DIAGNOSTIC STRIP TEST SCH (17:30)
[2021-04-08 18:00] VITALS: BP 130/37
[2021-04-08] MEDS ORDERED: DEXT 10% WATER 1,000 ML IV SCH (19:30)
[2021-04-08] MEDS ORDERED: DEXTROSE 10% WATER 1,000 ML IV ONE (19:30)
[2021-04-08 20:00] VITALS: BP 122/56
[2021-04-08] MEDS: DEXTROSE 50% WATER 50ML SYRINGE IV PRN (20:18)
[2021-04-08] MEDS: BLOOD SUGAR DIAGNOSTIC STRIP TEST SCH ×2 (20:19→23:54)
[2021-04-09] VITALS (8 sets, daily range): BP systolic 102–152; BP diastolic 51–90
[2021-04-09] MEDS: PIPERACILLIN/TAZOBACTAM 2.25G in DEXTROSE 5% WATER 50ML IV SCH ×3 (01:25→19:58)
[2021-04-09] MEDS: DEXTROSE 50% WATER 50ML SYRINGE IV PRN ×5 (04:30→15:31)
[2021-04-09] MEDS: BLOOD SUGAR DIAGNOSTIC STRIP TEST SCH ×4 (04:32→16:00)
[2021-04-09 06:04] LABS: CHLORIDE 93 mEq/L (98-107)
[2021-04-09 06:10] LABS: HEMATOCRIT. 28.6 % (42.0-52.0); HEMOGLOBIN. 9.7 g/dL (14.0-18.0); MEAN CORPUSCULAR HEMOGLOBIN 27.1 pg (28.0-32.0); MEAN CORPUSCULAR VOLUME 80.1 fL (80.0-94.0); RED BLOOD CELL COUNT 3.57 mill/uL (4.7-6.1); RED CELL DISTRIBUTION WIDTH 19.8 % (11.6-14.6)
[2021-04-09 06:18] LABS: PHOSPHORUS 6.6 mg/dL (2.5-4.9)
[2021-04-09] MEDS: ACETAMINOPHEN 325MG TABLET PO PRN (09:05)
[2021-04-09] MEDS ORDERED: LIDOCAINE HCL 1% 20ML VIAL (Pyxis) INJ ONE (14:02)
[2021-04-09] MEDS ORDERED: VANCOMYCIN 500 MG PREMIX 100 ML IV NR (16:00)
[2021-04-09] MEDS ORDERED: DEXTROSE 20% WATER 500 ML IV SCH ×2 (16:15)
[2021-04-09] MEDS ORDERED: DEXTROSE 20% WATER 500 ML IV NR (16:15)
[2021-04-09] MEDS ORDERED: GLUCAGON,HUMAN RECOMBINANT 1MG/VIAL IV NR (16:30)
[2021-04-09 16:52] LABS: PLATELET 61 x1000/uL (130-400)
[2021-04-09 16:53] LABS: MEAN PLATELET VOLUME 10.2 fl (7.4-10.4)
[2021-04-09 16:58] LABS: PLATELET ESTIMATE DECREASED
[2021-04-10] VITALS (11 sets, daily range): BP systolic 95–147; BP diastolic 45–90
[2021-04-10] MEDS: PIPERACILLIN/TAZOBACTAM 2.25G in DEXTROSE 5% WATER 50ML IV SCH (01:02)
[2021-04-10] MEDS: DEXT 10% WATER 1,000 ML IV SCH ×2 (02:13→21:23)
[2021-04-10] MEDS: BLOOD SUGAR DIAGNOSTIC STRIP TEST SCH ×7 (02:14→12:25)
[2021-04-10 05:52] LABS: INR 1.4; PROTHROMBIN TIME 14.6 sec (9.6-11.0)
[2021-04-10 06:18] LABS: CHLORIDE 96 mEq/L (98-107)
[2021-04-10 06:26] LABS: PHOSPHORUS 5.9 mg/dL (2.5-4.9)
[2021-04-10 07:19] LABS: HEMATOCRIT. 28.3 % (42.0-52.0); HEMOGLOBIN. 9.3 g/dL (14.0-18.0); MEAN CORPUSCULAR HEMOGLOBIN 26.8 pg (28.0-32.0); MEAN CORPUSCULAR VOLUME 81.4 fL (80.0-94.0); MEAN PLATELET VOLUME 10.6 fl (7.4-10.4); RED BLOOD CELL COUNT 3.48 mill/uL (4.7-6.1)
[2021-04-10] MEDS: CEFEPIME 1,000 MG in DEXTROSE 5% WATER 50 ML IV SCH (11:38)
[2021-04-10] MEDS: METRONIDAZOLE 500 MG PREMIX 100 ML IV SCH ×2 (12:36→21:22)
[2021-04-10 15:02] LABS: PLATELET ESTIMATE MARKEDLY DECREASED
[2021-04-10 15:03] LABS: PLATELET 50 x1000/uL (130-400)
[2021-04-10] MEDS: ACETAMINOPHEN 325MG TABLET PO PRN (20:16)
[2021-04-10] MEDS ORDERED: EPOETIN ALFA 10000UNITS/ML VIAL SUBCUT SCH (21:00)
[2021-04-10] MEDS: DILTIAZEM HCL 60MG TABLET PO SCH (21:30)
[2021-04-11] VITALS (12 sets, daily range): BP systolic 111–147; BP diastolic 49–93
[2021-04-11 03:58] LABS: BG BASE EXCESS -1.7 mmol/L (-2.0-2.0); BG CARBOXYHEMOGLOBIN 0.7 % (0.5-1.5); BG DEOXYHEMOGLOBIN 0.4 % (0.0-5.0); BG FRACTION INSPIRED OXYGEN 100; BG HCO3 ACT 21.6 mmol/L (22.0-26.0); BG METHEMOGLOBIN 0.2 % (0.0-1.5); BG OXYGEN SATURATION 99.6 % (92.0-98.5); BG OXYHEMOGLOBIN 98.7 % (94.0-97.0); BG PCO2 31.3 mmHg (35.0-45.0); BG PH 7.457 (7.350-7.450); BG PO2 439.1 mmHg (75.0-100.0); BG SAMPLE SITE LEFT RADIAL; BG TOTAL HEMOGLOBIN 9.8 g/dL (12.0-18.0); BG VENT MODE MASK - NRB
[2021-04-11] MEDS: DILTIAZEM HCL 60MG TABLET PO SCH ×3 (06:00→20:55)
[2021-04-11 06:35] LABS: INR 1.8; PARTIAL THROMBOPLASTIN TIME 46.2 sec (23.4-31.0); PROTHROMBIN TIME 18.5 sec (9.6-11.0)
[2021-04-11 06:41] LABS: CHLORIDE 98 mEq/L (98-107)
[2021-04-11 06:46] LABS: HEMATOCRIT. 27.3 % (42.0-52.0); HEMOGLOBIN. 9.2 g/dL (14.0-18.0); MEAN CORPUSCULAR HEMOGLOBIN 26.7 pg (28.0-32.0); MEAN CORPUSCULAR VOLUME 79.4 fL (80.0-94.0); RED BLOOD CELL COUNT 3.44 mill/uL (4.7-6.1); RED CELL DISTRIBUTION WIDTH 20.1 % (11.6-14.6)
[2021-04-11 06:49] LABS: PHOSPHORUS 4.9 mg/dL (2.5-4.9)
[2021-04-11 06:51] LABS: T4 FREE 1.13 ng/dL (0.76-1.46)
[2021-04-11] MEDS ORDERED: ACETAMINOPHEN 650MG SUPP PR SCH (07:00)
[2021-04-11 07:46] LABS: MEAN PLATELET VOLUME 10.1 fl (7.4-10.4)
[2021-04-11 07:47] LABS: PLATELET 61 x1000/uL (130-400)
[2021-04-11] MEDS ORDERED: LIDOCAINE HCL 1% 20ML VIAL (Pyxis) INJ ONE (08:10)
[2021-04-11] MEDS ORDERED: HYDROMORPHONE HCL/PF 2MG/ML CPJ IV NR (08:15)
[2021-04-11] MEDS: METRONIDAZOLE 500 MG PREMIX 100 ML IV SCH ×2 (08:42→20:50)
[2021-04-11] MEDS: CEFEPIME 1,000 MG in DEXTROSE 5% WATER 50 ML IV SCH (08:42)
[2021-04-11] MEDS ORDERED: DILTIAZEM HCL 5MG/ML 5ML VIAL IV PRN (11:15)
[2021-04-11 12:11] LABS: PLATELET ESTIMATE DECREASED
[2021-04-11] MEDS: DEXT 10% WATER 1,000 ML IV SCH (18:41)
[2021-04-12] VITALS (13 sets, daily range): BP systolic 99–148; BP diastolic 45–80
[2021-04-12] MEDS: ACETAMINOPHEN 325MG TABLET PO PRN (03:02)
[2021-04-12] MEDS: DILTIAZEM HCL 60MG TABLET PO SCH ×3 (06:00→20:45)
[2021-04-12 06:57] LABS: HEMATOCRIT. 26.1 % (42.0-52.0); HEMOGLOBIN. 8.8 g/dL (14.0-18.0); MEAN CORPUSCULAR HEMOGLOBIN 26.9 pg (28.0-32.0); MEAN PLATELET VOLUME 10.7 fl (7.4-10.4); PLATELET 73 x1000/uL (130-400); RED BLOOD CELL COUNT 3.26 mill/uL (4.7-6.1); RED CELL DISTRIBUTION WIDTH 19.6 % (11.6-14.6)
[2021-04-12 07:07] LABS: CHLORIDE 97 mEq/L (98-107)
[2021-04-12 07:26] LABS: PHOSPHORUS 6.1 mg/dL (2.5-4.9)
[2021-04-12] MEDS: BLOOD SUGAR DIAGNOSTIC STRIP TEST SCH ×3 (08:00→16:00)
[2021-04-12] MEDS: CEFEPIME 1,000 MG in DEXTROSE 5% WATER 50 ML IV SCH (08:52)
[2021-04-12] MEDS: METRONIDAZOLE 500 MG PREMIX 100 ML IV SCH ×2 (08:52→20:34)
[2021-04-12] MEDS: DEXT 10% WATER 1,000 ML IV SCH (13:29)
[2021-04-12] MEDS: LOPERAMIDE HCL 2MG CAPSULE PO PRN (18:50)
[2021-04-12 19:56] LABS: TOTAL IRON BINDING CAPACITY 116 ug/dL (250-450)
[2021-04-12 20:18] LABS: CHLORIDE 98 mEq/L (98-107); PARTIAL THROMBOPLASTIN TIME 66.5 sec (23.4-31.0); PROTHROMBIN TIME 29.6 sec (9.6-11.0)
[2021-04-12 20:19] LABS: HEMATOCRIT. 23.9 % (42.0-52.0); HEMOGLOBIN. 8.2 g/dL (14.0-18.0); MEAN CORPUSCULAR HEMOGLOBIN 27.3 pg (28.0-32.0); MEAN CORPUSCULAR VOLUME 79.4 fL (80.0-94.0); MEAN PLATELET VOLUME 10.7 fl (7.4-10.4); PLATELET 57 x1000/uL (130-400); RED BLOOD CELL COUNT 3.01 mill/uL (4.7-6.1); RED CELL DISTRIBUTION WIDTH 20.4 % (11.6-14.6)
[2021-04-12 20:27] LABS: FERRITIN 1240 ng/mL (22-322)
[2021-04-12 20:32] LABS: PLATELET ESTIMATE DECREASED
[2021-04-12] MEDS: EPOETIN ALFA-EPBX 10,000 UNIT/ML VIAL SUBCUT SCH (20:46)
[2021-04-12 20:55] LABS: VITAMIN B12 SERUM > 2000.0 pg/mL (211-911)
[2021-04-12 21:23] LABS: PLATELET ESTIMATE DECREASED
[2021-04-13] VITALS (10 sets, daily range): BP systolic 94–141; BP diastolic 35–83
[2021-04-13] MEDS: ACETAMINOPHEN 325MG TABLET PO PRN ×2 (00:30→16:59)
[2021-04-13] MEDS: LOPERAMIDE HCL 2MG CAPSULE PO PRN ×3 (01:35→20:54)
[2021-04-13] MEDS: DILTIAZEM HCL 60MG TABLET PO SCH ×3 (04:44→20:55)
[2021-04-13] MEDS: BLOOD SUGAR DIAGNOSTIC STRIP TEST SCH ×4 (08:00→20:54)
[2021-04-13 08:50] LABS: CHLORIDE 99 mEq/L (98-107)
[2021-04-13] MEDS ORDERED: BARIUM SULFATE(VOLUMEN) 450 ML ORAL.SUSP ONE (08:55)
[2021-04-13] MEDS ORDERED: DIATR MEGLU/DIATRIZOATE SOLN 30ML ONE (08:55)
[2021-04-13 08:56] LABS: PHOSPHORUS 4.3 mg/dL (2.5-4.9)
[2021-04-13] MEDS ORDERED: IOHEXOL-350 100 ML BOTTLE ONE (08:56)
[2021-04-13 08:59] LABS: HEMATOCRIT. 24.3 % (42.0-52.0); HEMOGLOBIN. 8.3 g/dL (14.0-18.0); MEAN CORPUSCULAR VOLUME 78.9 fL (80.0-94.0); RED BLOOD CELL COUNT 3.08 mill/uL (4.7-6.1)
[2021-04-13] MEDS ORDERED: LIDOCAINE HCL 1% 20ML VIAL (Pyxis) INJ ONE (09:25)
[2021-04-13] MEDS ORDERED: IOHEXOL-300 50 ML BOTTLE IV ONE (09:25)
[2021-04-13] MEDS: METRONIDAZOLE 500 MG PREMIX 100 ML IV SCH ×2 (10:42→20:54)
[2021-04-13] MEDS: CEFEPIME 1,000 MG in DEXTROSE 5% WATER 50 ML IV SCH (10:42)
[2021-04-13 11:19] LABS: PLATELET ESTIMATE DECREASED
[2021-04-13 11:20] LABS: MEAN PLATELET VOLUME 10.7 fl (7.4-10.4); PLATELET 62 x1000/uL (130-400)
[2021-04-13 13:06] LABS: INSULIN 2.5 uIU/mL (2.6-24.9)
[2021-04-14] VITALS (12 sets, daily range): BP systolic 92–142; BP diastolic 33–104
[2021-04-14] MEDS: ACETAMINOPHEN 325MG TABLET PO PRN ×3 (00:03→17:20)
[2021-04-14] MEDS: BLOOD SUGAR DIAGNOSTIC STRIP TEST SCH ×6 (00:10→20:00)
[2021-04-14] MEDS: DILTIAZEM HCL 60MG TABLET PO SCH ×3 (05:22→22:03)
[2021-04-14 05:33] LABS: HEMATOCRIT. 25.9 % (42.0-52.0); HEMOGLOBIN. 8.6 g/dL (14.0-18.0); MEAN CORPUSCULAR HEMOGLOBIN 26.4 pg (28.0-32.0); MEAN CORPUSCULAR VOLUME 79.2 fL (80.0-94.0); RED BLOOD CELL COUNT 3.27 mill/uL (4.7-6.1); RED CELL DISTRIBUTION WIDTH 19.9 % (11.6-14.6)
[2021-04-14 06:01] LABS: PHOSPHORUS 3.6 mg/dL (2.5-4.9)
[2021-04-14] MEDS: METRONIDAZOLE 500 MG PREMIX 100 ML IV SCH ×2 (08:45→20:23)
[2021-04-14] MEDS: CEFEPIME 1,000 MG in DEXTROSE 5% WATER 50 ML IV SCH (08:45)
[2021-04-14 11:40] LABS: PLATELET ESTIMATE DECREASED
[2021-04-14 11:41] LABS: PLATELET 57 x1000/uL (130-400)
[2021-04-14] MEDS ORDERED: [UNRECOGNIZED DRUG - REMARK] XX SCH (14:00)
[2021-04-14] MEDS: LOPERAMIDE HCL 2MG CAPSULE PO PRN (20:22)
[2021-04-15] VITALS (13 sets, daily range): BP systolic 110–155; BP diastolic 48–93
[2021-04-15] MEDS: BLOOD SUGAR DIAGNOSTIC STRIP TEST SCH ×7 (04:00→23:05)
[2021-04-15] MEDS: ACETAMINOPHEN 325MG TABLET PO PRN (05:36)
[2021-04-15] MEDS: DILTIAZEM HCL 60MG TABLET PO SCH ×3 (05:36→23:04)
[2021-04-15 05:45] LABS: HEMATOCRIT. 26.2 % (42.0-52.0); HEMOGLOBIN. 8.6 g/dL (14.0-18.0); MEAN CORPUSCULAR HEMOGLOBIN 26.6 pg (28.0-32.0); MEAN CORPUSCULAR VOLUME 81.1 fL (80.0-94.0); MEAN PLATELET VOLUME 10.5 fl (7.4-10.4); RED BLOOD CELL COUNT 3.23 mill/uL (4.7-6.1); RED CELL DISTRIBUTION WIDTH 21.1 % (11.6-14.6)
[2021-04-15 05:55] LABS: CHLORIDE 97 mEq/L (98-107)
[2021-04-15 06:06] LABS: PHOSPHORUS 5.1 mg/dL (2.5-4.9)
[2021-04-15 07:30] LABS: PLATELET 41 x1000/uL (130-400)
[2021-04-15] MEDS: METRONIDAZOLE 500 MG PREMIX 100 ML IV SCH ×2 (08:08→23:05)
[2021-04-15] MEDS: CEFEPIME 1,000 MG in DEXTROSE 5% WATER 50 ML IV SCH (08:08)
[2021-04-15] MEDS ORDERED: DEXTROSE 5% WATER 1,000 ML IV SCH (08:15)
[2021-04-15 22:40] LABS: NUCLEATED RED BLOOD CELLS 4 /100 WBC; PLATELET ESTIMATE MARKEDLY DECREASED
[2021-04-15] MEDS: EPOETIN ALFA-EPBX 10,000 UNIT/ML VIAL SUBCUT SCH (23:04)
[2021-04-16] VITALS (12 sets, daily range): BP systolic 113–137; BP diastolic 54–90
[2021-04-16] MEDS: ACETAMINOPHEN 325MG TABLET PO PRN ×3 (00:11→08:14)
[2021-04-16] MEDS: BLOOD SUGAR DIAGNOSTIC STRIP TEST SCH ×5 (04:18→20:00)
[2021-04-16] MEDS: DILTIAZEM HCL 60MG TABLET PO SCH ×3 (05:21→21:23)
[2021-04-16 07:20] LABS: CHLORIDE 99 mEq/L (98-107)
[2021-04-16 07:26] LABS: PHOSPHORUS 3.7 mg/dL (2.5-4.9)
[2021-04-16 07:42] LABS: HEMATOCRIT. 25.5 % (42.0-52.0); HEMOGLOBIN. 8.4 g/dL (14.0-18.0); MEAN CORPUSCULAR HEMOGLOBIN 26.6 pg (28.0-32.0); MEAN CORPUSCULAR VOLUME 80.6 fL (80.0-94.0); RED BLOOD CELL COUNT 3.16 mill/uL (4.7-6.1)
[2021-04-16 07:53] LABS: PLATELET 49 x1000/uL (130-400)
[2021-04-16] MEDS: METRONIDAZOLE 500 MG PREMIX 100 ML IV SCH ×2 (08:14→21:25)
[2021-04-16] MEDS: CEFEPIME 1,000 MG in DEXTROSE 5% WATER 50 ML IV SCH (08:15)
[2021-04-16 13:41] LABS: NUCLEATED RED BLOOD CELLS 2 /100 WBC
[2021-04-16 13:42] LABS: PLATELET ESTIMATE MARKEDLY DECREASED
[2021-04-16] MEDS: LOPERAMIDE HCL 2MG CAPSULE PO PRN (14:05)
[2021-04-16 22:03] LABS: CHLORIDE 99 mEq/L (98-107)
[2021-04-16 22:04] LABS: INR 2.9; PARTIAL THROMBOPLASTIN TIME 62.3 sec (23.4-31.0); PROTHROMBIN TIME 28.3 sec (9.6-11.0)
[2021-04-16 22:08] LABS: HEMATOCRIT. 26.4 % (42.0-52.0); HEMOGLOBIN. 8.6 g/dL (14.0-18.0); MEAN CORPUSCULAR HEMOGLOBIN 26.7 pg (28.0-32.0); MEAN CORPUSCULAR VOLUME 81.9 fL (80.0-94.0); MEAN PLATELET VOLUME 10.1 fl (7.4-10.4); RED BLOOD CELL COUNT 3.23 mill/uL (4.7-6.1); RED CELL DISTRIBUTION WIDTH 20.5 % (11.6-14.6)
[2021-04-16 22:16] LABS: PLATELET 37 x1000/uL (130-400)
[2021-04-16 22:36] LABS: HEPATITIS B SURFACE ANTIGEN NEGATIVE
[2021-04-16 22:48] LABS: NUCLEATED RED BLOOD CELLS 4 /100 WBC
[2021-04-16 22:50] LABS: PLATELET ESTIMATE MARKEDLY DECREASED
[2021-04-16 23:05] LABS: HEPATITIS A AB IGM NEGATIVE (NEGATIVE)
[2021-04-17] VITALS (39 sets, daily range): BP systolic 95–161; BP diastolic 46–112
[2021-04-17] MEDS: BLOOD SUGAR DIAGNOSTIC STRIP TEST SCH ×5 (04:00→20:00)
[2021-04-17] MEDS: DILTIAZEM HCL 60MG TABLET PO SCH ×3 (05:24→22:00)
[2021-04-17 06:27] LABS: PHOSPHORUS 4.7 mg/dL (2.5-4.9)
[2021-04-17 07:23] LABS: HEMATOCRIT. 25.5 % (42.0-52.0); HEMOGLOBIN. 8.5 g/dL (14.0-18.0); MEAN CORPUSCULAR HEMOGLOBIN 27.4 pg (28.0-32.0); MEAN CORPUSCULAR VOLUME 82.3 fL (80.0-94.0); RED CELL DISTRIBUTION WIDTH 20.6 % (11.6-14.6)
[2021-04-17] MEDS: DEXTROSE 50% WATER 50ML SYRINGE IV PRN ×2 (08:41→19:07)
[2021-04-17] MEDS ORDERED: DEXT 5%/0.9% NACL 1,000 ML IV SCH (08:45)
[2021-04-17] MEDS: CEFEPIME 1,000 MG in DEXTROSE 5% WATER 50 ML IV SCH (09:12)
[2021-04-17 09:33] LABS: BG BASE EXCESS -4.1 mmol/L (-2.0-2.0); BG DEOXYHEMOGLOBIN 2.3 % (0.0-5.0); BG FRACTION INSPIRED OXYGEN 100; BG HCO3 ACT 19.4 mmol/L (22.0-26.0); BG METHEMOGLOBIN 0.3 % (0.0-1.5); BG OXYGEN SATURATION 97.7 % (92.0-98.5); BG OXYHEMOGLOBIN 96.4 % (94.0-97.0); BG PCO2 29.3 mmHg (35.0-45.0); BG PH 7.439 (7.350-7.450); BG PO2 112.1 mmHg (75.0-100.0); BG SAMPLE SITE RIGHT RADIAL; BG TOTAL HEMOGLOBIN 7.8 g/dL (12.0-18.0); BG VENT MODE MASK - NRB
[2021-04-17] MEDS: METRONIDAZOLE 500 MG PREMIX 100 ML IV SCH (09:39)
[2021-04-17] MEDS ORDERED: DEXT 10% WATER 1,000 ML IV SCH ×2 (10:00)
[2021-04-17 11:18] LABS: PLATELET 40 x1000/uL (130-400)
[2021-04-17 11:24] LABS: NUCLEATED RED BLOOD CELLS 10 /100 WBC; PLATELET ESTIMATE MARKEDLY DECREASED
[2021-04-17] MEDS ORDERED: IOHEXOL-300 100 ML BOTTLE ONE (13:19)
[2021-04-17] MEDS ORDERED: SIMETHICONE 40 MG/0.6 ML 30ML ONE (13:20)
[2021-04-17] MEDS ORDERED: ALBUMIN HUMAN 25GM/100ML (25%) IV ONE (16:59)
[2021-04-17] MEDS ORDERED: DEXAMETHASONE 4MG/ML 1ML VIAL ONE (17:05)
[2021-04-17] MEDS ORDERED: ROCURONIUM BROMIDE 10MG/ML VIAL 5ML IV ONE (17:05)
[2021-04-17] MEDS ORDERED: PROPOFOL 10MG/ML 100ML 100 ML IV ONE (17:19)
[2021-04-17] MEDS ORDERED: DOPAMINE 400MG/250ML PREMIX 250 ML IV ONE (17:28)
[2021-04-17] MEDS ORDERED: VASOPRESSIN 20 UNIT/ML 1ML ONE (17:28)
[2021-04-17] MEDS ORDERED: SODIUM BICARBONATE 8.4% 1 MEQ/ML 50ML SYR IV ONE (17:46)
[2021-04-17] MEDS ORDERED: AMIODARONE HCL 50MG/ML 3ML VIAL IV ONE ×2 (17:49→17:59)
[2021-04-17] MEDS ORDERED: HYDROMORPHONE HCL/PF 2MG/ML (OR) ONE (18:09)
[2021-04-17] MEDS ORDERED: NOREPINEPHRINE 32 MG in DEXT 5% WATER 218 ML IV PRN (18:45)
[2021-04-17] MEDS: PROPOFOL 10MG/ML 100ML 100 ML IV PRN ×2 (18:51→23:41)
[2021-04-17] MEDS: DOPAMINE 400MG/250ML PREMIX 250 ML IV PRN (18:59)
[2021-04-17 19:06] LABS: INSULIN AUTOANTIBODIES 5.5 uU/mL (.)
[2021-04-17 19:16] LABS: BG BASE EXCESS -6.3 mmol/L (-2.0-2.0); BG CARBOXYHEMOGLOBIN 1.8 % (0.5-1.5); BG DEOXYHEMOGLOBIN 7.1 % (0.0-5.0); BG FRACTION INSPIRED OXYGEN 100; BG HCO3 ACT 20.1 mmol/L (22.0-26.0); BG METHEMOGLOBIN 0.9 % (0.0-1.5); BG OXYGEN SATURATION 92.7 % (92.0-98.5); BG OXYHEMOGLOBIN 90.2 % (94.0-97.0); BG PCO2 45.2 mmHg (35.0-45.0); BG PH 7.266 (7.350-7.450); BG PO2 86.4 mmHg (75.0-100.0); BG SAMPLE SITE RIGHT BRACHIAL; BG TOTAL HEMOGLOBIN 5.8 g/dL (12.0-18.0); BG VENT MODE VENT - AC
[2021-04-17 19:59] LABS: HEMATOCRIT 18.7 % (42.0-52.0)
[2021-04-17] MEDS: METRONIDAZOLE 500MG TABLET PO SCH (21:00)
[2021-04-17 21:30] LABS: BG BASE EXCESS -4.6 mmol/L (-2.0-2.0); BG CARBOXYHEMOGLOBIN 1.7 % (0.5-1.5); BG DEOXYHEMOGLOBIN 15.1 % (0.0-5.0); BG FRACTION INSPIRED OXYGEN 95; BG HCO3 ACT 21.4 mmol/L (22.0-26.0); BG METHEMOGLOBIN 0.6 % (0.0-1.5); BG OXYGEN SATURATION 84.5 % (92.0-98.5); BG OXYHEMOGLOBIN 82.6 % (94.0-97.0); BG PCO2 44.1 mmHg (35.0-45.0); BG PH 7.303 (7.350-7.450); BG PO2 61.6 mmHg (75.0-100.0); BG SAMPLE SITE RIGHT RADIAL; BG TOTAL HEMOGLOBIN 6.3 g/dL (12.0-18.0); BG VENT MODE VENT - AC
[2021-04-17] MEDS ORDERED: PHYTONADIONE 10 MG/10 ML ORALSYR PO NR (23:00)
[2021-04-17] MEDS ORDERED: PHYTONADIONE 10MG/ML AMP SUBCUT NR (23:30)
[2021-04-18] VITALS (92 sets, daily range): BP systolic 63–163; BP diastolic 23–111
[2021-04-18] MEDS: BLOOD SUGAR DIAGNOSTIC STRIP TEST SCH ×5 (00:36→20:00)
[2021-04-18] MEDS: PANTOPRAZOLE SODIUM 40 MG/VIAL IV SCH ×3 (00:37→21:45)
[2021-04-18 01:07] LABS: BASOPHILS % 2.6 % (0.0-2.0); EOSINOPHILS % 1.2 % (0.0-5.0); HEMATOCRIT. 26.2 % (42.0-52.0); LYMPHOCYTES % 46.8 % (20.0-50.0); MEAN CORPUSCULAR HEMOGLOBIN 28.5 pg (28.0-32.0); MEAN CORPUSCULAR VOLUME 82.6 fL (80.0-94.0); MEAN PLATELET VOLUME 9.7 fl (7.4-10.4); MONOCYTES % 4.3 % (2.0-8.0); NEUTROPHILS % 45.1 % (40.0-76.0); RED BLOOD CELL COUNT 3.16 mill/uL (4.7-6.1); RED CELL DISTRIBUTION WIDTH 17.5 % (11.6-14.6)
[2021-04-18 01:23] LABS: PLATELET 34 x1000/uL (130-400)
[2021-04-18 01:42] LABS: INR 2.7; PROTHROMBIN TIME 27.1 sec (9.6-11.0)
[2021-04-18] MEDS: PROPOFOL 10MG/ML 100ML 100 ML IV PRN (05:31)
[2021-04-18] MEDS: FENTANYL CITRATE/PF 2,500 MCG in SODIUM CHLORIDE 0.9% 200 ML IV PRN (05:33)
[2021-04-18 06:39] LABS: HEMATOCRIT. 24.8 % (42.0-52.0); HEMOGLOBIN. 8.7 g/dL (14.0-18.0); MEAN CORPUSCULAR HEMOGLOBIN 29.2 pg (28.0-32.0); MEAN CORPUSCULAR VOLUME 83.4 fL (80.0-94.0); MEAN PLATELET VOLUME 9.9 fl (7.4-10.4); PLATELET 69 x1000/uL (130-400); RED BLOOD CELL COUNT 2.97 mill/uL (4.7-6.1); RED CELL DISTRIBUTION WIDTH 17.7 % (11.6-14.6)
[2021-04-18 06:47] LABS: CHLORIDE 105 mEq/L (98-107)
[2021-04-18 06:53] LABS: PHOSPHORUS 7.2 mg/dL (2.5-4.9)
[2021-04-18] MEDS ORDERED: SKIN ADHESIVE 0.7 GM EA TOP ONE (07:28)
[2021-04-18] MEDS ORDERED: POLYMYXIN B SULFATE 500000 UNITS/VIAL ONE (07:29)
[2021-04-18] MEDS ORDERED: BUPIVACAINE HCL 0.5% (5MG/ML) 50ML ONE (07:29)
[2021-04-18] MEDS ORDERED: ROCURONIUM BROMIDE 10MG/ML VIAL 5ML IV ONE (08:11)
[2021-04-18] MEDS ORDERED: CALCIUM CHLORIDE 1GM/10ML SYR IV ONE ×2 (08:12→08:15)
[2021-04-18] MEDS ORDERED: TRANEXAMIC ACID 1,000 MG/10 ML IV NR (08:15)
[2021-04-18 08:30] LABS: BG BASE EXCESS -4.3 mmol/L (-2.0-2.0); BG CARBOXYHEMOGLOBIN 0.6 % (0.5-1.5); BG FRACTION INSPIRED OXYGEN 100; BG HCO3 ACT 19.1 mmol/L (22.0-26.0); BG METHEMOGLOBIN 0.3 % (0.0-1.5); BG OXYHEMOGLOBIN 98.1 % (94.0-97.0); BG PCO2 28.4 mmHg (35.0-45.0); BG PH 7.446 (7.350-7.450); BG PO2 231.8 mmHg (75.0-100.0); BG SAMPLE SITE RIGHT RADIAL; BG TOTAL HEMOGLOBIN 7.7 g/dL (12.0-18.0); BG VENT MODE VENT - AC
[2021-04-18 08:42] LABS: NUCLEATED RED BLOOD CELLS 2 /100 WBC; PLATELET ESTIMATE DECREASED
[2021-04-18] MEDS: CEFEPIME 1,000 MG in DEXTROSE 5% WATER 50 ML IV SCH (09:00)
[2021-04-18] MEDS: METRONIDAZOLE 500MG TABLET PO SCH ×2 (09:00→21:45)
[2021-04-18] MEDS ORDERED: METRONIDAZOLE 500 MG PREMIX 100 ML IV ONE (09:46)
[2021-04-18] MEDS ORDERED: HYDROMORPHONE HCL/PF 2MG/ML (OR) ONE (09:52)
[2021-04-18] MEDS ORDERED: PROPOFOL 10MG/ML 100ML 100 ML IV ONE (10:16)
[2021-04-18] MEDS: MIDAZOLAM HCL 100 MG in SODIUM CHLORIDE 0.9% 80 ML IV PRN (10:45)
[2021-04-18] MEDS ORDERED: DEXTROSE 5% WATER 1,000 ML IV SCH (12:15)
[2021-04-18] MEDS: DILTIAZEM HCL 60MG TABLET PO SCH ×2 (14:59→21:46)
[2021-04-18] MEDS ORDERED: SODIUM POLYSTYRENE SULFONATE 15 G/60 ML BOT PO NR (15:00)
[2021-04-18] MEDS: NOREPINEPHRINE 8 MG in DEXT 5% WATER 242 ML IV PRN (15:17)
[2021-04-18 18:04] LABS: HEMATOCRIT 32.8 % (42.0-52.0); HEMOGLOBIN 11.1 g/dL (14.0-18.0)
[2021-04-19] VITALS (105 sets, daily range): BP systolic 60–130; BP diastolic 37–99
[2021-04-19] MEDS ORDERED: INSULIN LISPRO 100 UNITS/ML SUBCUT SCH
[2021-04-19] MEDS: INSULIN LISPRO (LOW DOSE) 100 UNITS/ML SUBCUT SCH ×6 (00:59→20:00)
[2021-04-19] MEDS: BLOOD SUGAR DIAGNOSTIC STRIP TEST SCH ×6 (00:59→20:00)
[2021-04-19] MEDS: DILTIAZEM HCL 60MG TABLET PO SCH ×5 (06:11→23:39)
[2021-04-19] MEDS: ACETAMINOPHEN 325MG TABLET PO PRN (06:41)
[2021-04-19 06:57] LABS: HEMATOCRIT. 34.7 % (42.0-52.0); HEMOGLOBIN. 11.4 g/dL (14.0-18.0); MEAN CORPUSCULAR HEMOGLOBIN 27.4 pg (28.0-32.0); MEAN CORPUSCULAR VOLUME 83.6 fL (80.0-94.0); RED BLOOD CELL COUNT 4.16 mill/uL (4.7-6.1); RED CELL DISTRIBUTION WIDTH 18.4 % (11.6-14.6)
[2021-04-19 07:33] LABS: PHOSPHORUS 7.7 mg/dL (2.5-4.9)
[2021-04-19 08:07] LABS: BG BASE EXCESS -10.8 mmol/L (-2.0-2.0); BG CARBOXYHEMOGLOBIN 0.4 % (0.5-1.5); BG DEOXYHEMOGLOBIN 2.9 % (0.0-5.0); BG FRACTION INSPIRED OXYGEN 50; BG HCO3 ACT 14.3 mmol/L (22.0-26.0); BG METHEMOGLOBIN 0.3 % (0.0-1.5); BG OXYGEN SATURATION 97.1 % (92.0-98.5); BG OXYHEMOGLOBIN 96.4 % (94.0-97.0); BG PCO2 29.5 mmHg (35.0-45.0); BG PH 7.304 (7.350-7.450); BG PO2 112.3 mmHg (75.0-100.0); BG SAMPLE SITE RIGHT RADIAL; BG TOTAL HEMOGLOBIN 11.2 g/dL (12.0-18.0); BG VENT MODE VENT - AC
[2021-04-19 08:36] LABS: NUCLEATED RED BLOOD CELLS 18 /100 WBC
[2021-04-19 08:38] LABS: PLATELET ESTIMATE MARKEDLY DECREASED
[2021-04-19 08:41] LABS: PLATELET 32 x1000/uL (130-400)
[2021-04-19] MEDS: NOREPINEPHRINE 8 MG in DEXT 5% WATER 242 ML IV PRN ×2 (09:58→19:57)
[2021-04-19] MEDS: METRONIDAZOLE 500MG TABLET PO SCH ×2 (11:45→22:21)
[2021-04-19] MEDS: PANTOPRAZOLE SODIUM 40 MG/VIAL IV SCH ×2 (11:45→22:21)
[2021-04-19] MEDS: CEFEPIME 1,000 MG in DEXTROSE 5% WATER 50 ML IV SCH (11:45)
[2021-04-19 12:22] LABS: BG BASE EXCESS -7.3 mmol/L (-2.0-2.0); BG FRACTION INSPIRED OXYGEN 50; BG HCO3 ACT 16.7 mmol/L (22.0-26.0); BG METHEMOGLOBIN 0.2 % (0.0-1.5); BG OXYHEMOGLOBIN 95.8 % (94.0-97.0); BG PCO2 29.3 mmHg (35.0-45.0); BG PH 7.373 (7.350-7.450); BG PO2 101.1 mmHg (75.0-100.0); BG SAMPLE SITE RIGHT RADIAL; BG TOTAL HEMOGLOBIN 12.2 g/dL (12.0-18.0); BG VENT MODE VENT - AC
[2021-04-19] MEDS: PHENYLEPHRINE 100 MG in DEXT 5% WATER 240 ML IV PRN (16:28)
[2021-04-19] MEDS: FENTANYL CITRATE/PF 2,500 MCG in SODIUM CHLORIDE 0.9% 200 ML IV PRN (23:41)
[2021-04-20] VITALS (121 sets, daily range): BP systolic 46–158; BP diastolic 20–110
[2021-04-20] MEDS: PHENYLEPHRINE 100 MG in DEXT 5% WATER 240 ML IV PRN ×4 (03:31→22:25)
[2021-04-20] MEDS: INSULIN LISPRO (LOW DOSE) 100 UNITS/ML SUBCUT SCH ×6 (04:00→20:00)
[2021-04-20] MEDS: BLOOD SUGAR DIAGNOSTIC STRIP TEST SCH ×6 (04:00→20:00)
[2021-04-20] MEDS: DILTIAZEM HCL 60MG TABLET PO SCH ×3 (06:00→18:00)
[2021-04-20 07:00] LABS: HEMATOCRIT. 37.9 % (42.0-52.0); HEMOGLOBIN. 12.1 g/dL (14.0-18.0); MEAN CORPUSCULAR HEMOGLOBIN 27.3 pg (28.0-32.0); MEAN CORPUSCULAR VOLUME 85.3 fL (80.0-94.0); MEAN PLATELET VOLUME 10.7 fl (7.4-10.4); RED BLOOD CELL COUNT 4.44 mill/uL (4.7-6.1); RED CELL DISTRIBUTION WIDTH 19.2 % (11.6-14.6)
[2021-04-20 07:16] LABS: PLATELET 25 x1000/uL (130-400)
[2021-04-20] MEDS: VASOPRESSIN 20 UNIT in SODIUM CHLORIDE 0.9% 99 ML IV PRN ×3 (08:09→22:32)
[2021-04-20 09:16] LABS: NUCLEATED RED BLOOD CELLS 113 /100 WBC; PLATELET ESTIMATE MARKEDLY DECREASED
[2021-04-20] MEDS: PANTOPRAZOLE SODIUM 40 MG/VIAL IV SCH ×2 (09:24→20:55)
[2021-04-20] MEDS: CEFEPIME 1,000 MG in DEXTROSE 5% WATER 50 ML IV SCH (09:25)
[2021-04-20] MEDS: METRONIDAZOLE 500MG TABLET PO SCH ×2 (09:31→20:55)
[2021-04-20] MEDS: NOREPINEPHRINE 8 MG in DEXT 5% WATER 242 ML IV PRN (09:33)
[2021-04-20 09:37] LABS: BG BASE EXCESS -15.2 mmol/L (-2.0-2.0); BG CARBOXYHEMOGLOBIN 1.2 % (0.5-1.5); BG DEOXYHEMOGLOBIN 9.5 % (0.0-5.0); BG FRACTION INSPIRED OXYGEN 50; BG HCO3 ACT 12.1 mmol/L (22.0-26.0); BG METHEMOGLOBIN 0.3 % (0.0-1.5); BG OXYGEN SATURATION 90.4 % (92.0-98.5); BG PCO2 33.6 mmHg (35.0-45.0); BG PH 7.176 (7.350-7.450); BG SAMPLE SITE RIGHT RADIAL; BG TOTAL HEMOGLOBIN 13.4 g/dL (12.0-18.0); BG TOTAL RESPIRATORY RATE 18 b/min; BG VENT MODE VENT - AC
[2021-04-20] MEDS ORDERED: SODIUM BICARBONATE 8.4% 1 MEQ/ML 50ML SYR IV NR ×3 (10:00→20:36)
[2021-04-20] MEDS ORDERED: SODIUM BICARBONATE 8.4% 1 MEQ/ML 50ML SYR IV SCH (10:00)
[2021-04-20] MEDS: NOREPINEPHRINE 32 MG in DEXT 5% WATER 218 ML IV PRN ×2 (12:07→22:24)
[2021-04-20 13:58] LABS: BG BASE EXCESS -17.4 mmol/L (-2.0-2.0); BG FRACTION INSPIRED OXYGEN 55; BG HCO3 ACT 9.6 mmol/L (22.0-26.0); BG METHEMOGLOBIN 0.4 % (0.0-1.5); BG OXYGEN SATURATION 90.9 % (92.0-98.5); BG OXYHEMOGLOBIN 89.6 % (94.0-97.0); BG PCO2 26.8 mmHg (35.0-45.0); BG PO2 76.6 mmHg (75.0-100.0); BG SAMPLE SITE RIGHT BRACHIAL; BG TOTAL HEMOGLOBIN 13.5 g/dL (12.0-18.0); BG TOTAL RESPIRATORY RATE 34 b/min; BG VENT MODE VENT - AC
[2021-04-20] MEDS ORDERED: CALCIUM GLUCONATE 1,000 MG in DEXT 5% WATER 90 ML IV SCH (14:00)
[2021-04-20] MEDS ORDERED: CALCITRIOL 0.25MCG CAPSULE PO SCH (14:00)
[2021-04-20] MEDS ORDERED: CALCIUM CHLORIDE 1,000 MG in DEXT 5% WATER 90 ML IV ONE (14:15)
[2021-04-20] MEDS ORDERED: ALBUMIN HUMAN 25GM/100ML (25%) IV NR (14:15)
[2021-04-20] MEDS ORDERED: HYDROCORTISONE SOD SUCCINATE 100 MG/2 ML VIAL IV NR (14:59)
[2021-04-20] MEDS: SODIUM BICARBONATE 150 MEQ in DEXTROSE 5% WATER 1,000 ML IV SCH (15:20)
[2021-04-20 16:11] LABS: BG BASE EXCESS -14.5 mmol/L (-2.0-2.0); BG CARBOXYHEMOGLOBIN 0.7 % (0.5-1.5); BG DEOXYHEMOGLOBIN 8.7 % (0.0-5.0); BG HCO3 ACT 11.2 mmol/L (22.0-26.0); BG METHEMOGLOBIN 0.4 % (0.0-1.5); BG OXYGEN SATURATION 91.2 % (92.0-98.5); BG OXYHEMOGLOBIN 90.2 % (94.0-97.0); BG PCO2 26.5 mmHg (35.0-45.0); BG PH 7.245 (7.350-7.450); BG PO2 75.1 mmHg (75.0-100.0); BG SAMPLE SITE ALINE; BG TOTAL HEMOGLOBIN 12.4 g/dL (12.0-18.0); BG VENT MODE VENT - AC
[2021-04-20] MEDS: CALCIUM GLUCONATE 1GM PREMIX 50 ML IV SCH (16:56)
[2021-04-20] MEDS ORDERED: DIGOXIN 500MCG/2ML AMP IV NR (17:00)
[2021-04-20] MEDS: DEXTROSE 50% WATER 50ML SYRINGE IV PRN (17:11)
[2021-04-20 17:34] LABS: HEPATITIS B SURFACE ANTIGEN NEGATIVE
[2021-04-20 18:04] LABS: HEPATITIS A AB IGM NEGATIVE (NEGATIVE)
[2021-04-20] MEDS: DILTIAZEM HCL 125 MG in DEXT 5% WATER 100 ML IV PRN (18:23)
[2021-04-20] MEDS: CALCITRIOL 1MCG/ML AMP IV SCH (18:25)
[2021-04-20] MEDS ORDERED: LEVOFLOXACIN 500MG PREMIX 100 ML IV NR (19:00)
[2021-04-20 19:45] LABS: BG BASE EXCESS -15.5 mmol/L (-2.0-2.0); BG CARBOXYHEMOGLOBIN 0.1 % (0.5-1.5); BG DEOXYHEMOGLOBIN 7.4 % (0.0-5.0); BG FRACTION INSPIRED OXYGEN 40; BG HCO3 ACT 10.1 mmol/L (22.0-26.0); BG METHEMOGLOBIN 0.3 % (0.0-1.5); BG OXYGEN SATURATION 92.6 % (92.0-98.5); BG OXYHEMOGLOBIN 92.2 % (94.0-97.0); BG PH 7.242 (7.350-7.450); BG PO2 80.7 mmHg (75.0-100.0); BG SAMPLE SITE ALINE; BG TOTAL HEMOGLOBIN 12.2 g/dL (12.0-18.0); BG VENT MODE VENT - AC
[2021-04-20] MEDS: ACETAMINOPHEN 325MG TABLET PO PRN (20:56)
[2021-04-20] MEDS: HYDROCORTISONE SOD SUCCINATE 100 MG/2 ML VIAL IV SCH (21:48)
[2021-04-21] VITALS (117 sets, daily range): BP systolic 13–153; BP diastolic -8–113
[2021-04-21 01:28] LABS: BG CARBOXYHEMOGLOBIN 0.4 % (0.5-1.5); BG DEOXYHEMOGLOBIN 8.8 % (0.0-5.0); BG FRACTION INSPIRED OXYGEN 75; BG HCO3 ACT 9.9 mmol/L (22.0-26.0); BG METHEMOGLOBIN 0.3 % (0.0-1.5); BG OXYGEN SATURATION 91.1 % (92.0-98.5); BG OXYHEMOGLOBIN 90.5 % (94.0-97.0); BG PCO2 24.4 mmHg (35.0-45.0); BG PH 7.225 (7.350-7.450); BG TOTAL HEMOGLOBIN 11.9 g/dL (12.0-18.0); BG VENT MODE VENT - AC
[2021-04-21] MEDS ORDERED: SODIUM BICARBONATE 8.4% 1 MEQ/ML 50ML SYR IV NR (02:15)
[2021-04-21] MEDS: BLOOD SUGAR DIAGNOSTIC STRIP TEST SCH ×6 (04:00→20:00)
[2021-04-21] MEDS: INSULIN LISPRO (LOW DOSE) 100 UNITS/ML SUBCUT SCH ×3 (04:00→07:47)
[2021-04-21] MEDS: PHENYLEPHRINE 100 MG in DEXT 5% WATER 240 ML IV PRN ×3 (05:25→21:05)
[2021-04-21 05:47] LABS: HEMATOCRIT. 36.3 % (42.0-52.0); HEMOGLOBIN. 11.5 g/dL (14.0-18.0); MEAN CORPUSCULAR HEMOGLOBIN 27.7 pg (28.0-32.0); MEAN CORPUSCULAR VOLUME 87.5 fL (80.0-94.0); MEAN PLATELET VOLUME 9.4 fl (7.4-10.4); RED BLOOD CELL COUNT 4.15 mill/uL (4.7-6.1); RED CELL DISTRIBUTION WIDTH 20.5 % (11.6-14.6)
[2021-04-21 05:51] LABS: CHLORIDE 95 mEq/L (98-107)
[2021-04-21] MEDS: DILTIAZEM HCL 60MG TABLET PO SCH ×2 (06:00)
[2021-04-21 06:04] LABS: BG BASE EXCESS -17.6 mmol/L (-2.0-2.0); BG CARBOXYHEMOGLOBIN 0.3 % (0.5-1.5); BG DEOXYHEMOGLOBIN 9.2 % (0.0-5.0); BG HCO3 ACT 8.9 mmol/L (22.0-26.0); BG METHEMOGLOBIN 0.2 % (0.0-1.5); BG OXYGEN SATURATION 90.8 % (92.0-98.5); BG OXYHEMOGLOBIN 90.3 % (94.0-97.0); BG PCO2 23.6 mmHg (35.0-45.0); BG PH 7.192 (7.350-7.450); BG PO2 78.8 mmHg (75.0-100.0); BG SAMPLE SITE ALINE; BG TOTAL HEMOGLOBIN 11.9 g/dL (12.0-18.0); BG VENT MODE VENT - AC
[2021-04-21] MEDS ORDERED: SODIUM BICARBONATE 8.4% 1 MEQ/ML 50ML SYR IV SCH (06:30)
[2021-04-21] MEDS ORDERED: ALBUMIN HUMAN 25GM/100ML (25%) IV SCH (06:30)
[2021-04-21 06:31] LABS: PLATELET 18 x1000/uL (130-400)
[2021-04-21] MEDS: HYDROCORTISONE SOD SUCCINATE 100 MG/2 ML VIAL IV SCH ×2 (06:39→14:58)
[2021-04-21 06:53] LABS: PHOSPHORUS 11.2 mg/dL (2.5-4.9)
[2021-04-21] MEDS: VASOPRESSIN 20 UNIT in SODIUM CHLORIDE 0.9% 99 ML IV PRN (07:49)
[2021-04-21] MEDS: PANTOPRAZOLE SODIUM 40 MG/VIAL IV SCH ×2 (08:13→21:17)
[2021-04-21] MEDS: CALCIUM GLUCONATE 1GM PREMIX 50 ML IV SCH ×3 (08:13→17:31)
[2021-04-21] MEDS: METRONIDAZOLE 500MG TABLET PO SCH ×2 (08:13→21:17)
[2021-04-21] MEDS ORDERED: DESMOPRESSIN ACETATE 4MCG/ML AMP IV ONE (08:30)
[2021-04-21] MEDS: CEFEPIME 1,000 MG in DEXTROSE 5% WATER 50 ML IV SCH (08:53)
[2021-04-21] MEDS: NOREPINEPHRINE 32 MG in DEXT 5% WATER 218 ML IV PRN ×2 (08:53→21:39)
[2021-04-21] MEDS: FENTANYL CITRATE/PF 2,500 MCG in SODIUM CHLORIDE 0.9% 200 ML IV PRN (09:27)
[2021-04-21] MEDS ORDERED: FENTANYL CITRATE/PF 2,500 MCG in SODIUM CHLORIDE 0.9% 200 ML IV PRN (10:00)
[2021-04-21] MEDS ORDERED: DESMOPRESSIN ACETATE 25 MCG in SODIUM CHLORIDE 0.9% 50 ML IV SCH (10:00)
[2021-04-21 10:56] LABS: NUCLEATED RED BLOOD CELLS 24 /100 WBC
[2021-04-21 10:57] LABS: PLATELET ESTIMATE MARKEDLY DECREASED
[2021-04-21 11:44] LABS: BG BASE EXCESS -13.8 mmol/L (-2.0-2.0); BG CARBOXYHEMOGLOBIN 0.3 % (0.5-1.5); BG FRACTION INSPIRED OXYGEN 75; BG HCO3 ACT 11.3 mmol/L (22.0-26.0); BG METHEMOGLOBIN 0.4 % (0.0-1.5); BG OXYGEN SATURATION 90.9 % (92.0-98.5); BG OXYHEMOGLOBIN 90.3 % (94.0-97.0); BG PCO2 24.4 mmHg (35.0-45.0); BG PH 7.284 (7.350-7.450); BG PO2 75.4 mmHg (75.0-100.0); BG SAMPLE SITE ALINE; BG TOTAL HEMOGLOBIN 10.4 g/dL (12.0-18.0); BG VENT MODE VENT - AC
[2021-04-21] MEDS: CALCIUM CARBONATE 1,250 MG/5 ML UDC PO SCH ×2 (14:58→17:30)
[2021-04-21] MEDS: SODIUM BICARBONATE 150 MEQ in DEXTROSE 5% WATER 1,000 ML IV SCH (15:37)
[2021-04-21] MEDS: FLUCONAZOLE 400MG/200ML BAG 200 ML IV SCH (15:38)
[2021-04-21 15:51] LABS: BG BASE EXCESS -7.6 mmol/L (-2.0-2.0); BG CARBOXYHEMOGLOBIN 0.7 % (0.5-1.5); BG DEOXYHEMOGLOBIN 8.4 % (0.0-5.0); BG FRACTION INSPIRED OXYGEN 75; BG HCO3 ACT 15.5 mmol/L (22.0-26.0); BG METHEMOGLOBIN 0.3 % (0.0-1.5); BG OXYGEN SATURATION 91.5 % (92.0-98.5); BG OXYHEMOGLOBIN 90.6 % (94.0-97.0); BG PCO2 24.3 mmHg (35.0-45.0); BG PH 7.422 (7.350-7.450); BG PO2 68.8 mmHg (75.0-100.0); BG SAMPLE SITE ALINE; BG TOTAL HEMOGLOBIN 9.9 g/dL (12.0-18.0); BG TOTAL RESPIRATORY RATE 42 b/min; BG VENT MODE VENT - AC
[2021-04-21] MEDS: CALCITRIOL 1MCG/ML AMP IV SCH (17:30)
[2021-04-21 19:14] LABS: HEMATOCRIT. 30.8 % (42.0-52.0); HEMOGLOBIN. 9.7 g/dL (14.0-18.0); MEAN CORPUSCULAR HEMOGLOBIN 27.5 pg (28.0-32.0); MEAN CORPUSCULAR VOLUME 87.1 fL (80.0-94.0); MEAN PLATELET VOLUME 8.8 fl (7.4-10.4); RED BLOOD CELL COUNT 3.54 mill/uL (4.7-6.1)
[2021-04-21 19:44] LABS: PLATELET 48 x1000/uL (130-400)
[2021-04-21 20:21] LABS: NUCLEATED RED BLOOD CELLS 51 /100 WBC
[2021-04-21 20:25] LABS: PLATELET ESTIMATE MARKEDLY DECREASED
[2021-04-21] MEDS ORDERED: VANCOMYCIN 1250MG in DEXTROSE 5% WATER 250ML IV NR (23:30)
[2021-04-22] VITALS (123 sets, daily range): BP systolic 74–246; BP diastolic 34–245
[2021-04-22 00:05] LABS: BG CARBOXYHEMOGLOBIN 0.2 % (0.5-1.5); BG DEOXYHEMOGLOBIN 9.6 % (0.0-5.0); BG FRACTION INSPIRED OXYGEN 90; BG HCO3 ACT 13.6 mmol/L (22.0-26.0); BG METHEMOGLOBIN 0.3 % (0.0-1.5); BG OXYGEN SATURATION 90.4 % (92.0-98.5); BG OXYHEMOGLOBIN 89.9 % (94.0-97.0); BG PCO2 26.5 mmHg (35.0-45.0); BG PH 7.327 (7.350-7.450); BG PO2 71.7 mmHg (75.0-100.0); BG SAMPLE SITE ALINE; BG TOTAL HEMOGLOBIN 10.9 g/dL (12.0-18.0); BG VENT MODE VENT - AC
[2021-04-22] MEDS: DEXTROSE 50% WATER 50ML SYRINGE IV PRN ×3 (00:17→23:16)
[2021-04-22 00:41] LABS: CREATINE KINASE 441 IU/L (39-308)
[2021-04-22] MEDS ORDERED: SODIUM BICARBONATE 8.4% 1 MEQ/ML 50ML SYR IV NR ×3 (01:00→18:45)
[2021-04-22] MEDS: DILTIAZEM HCL 125 MG in DEXT 5% WATER 100 ML IV PRN (01:39)
[2021-04-22] MEDS: PHENYLEPHRINE 100 MG in DEXT 5% WATER 240 ML IV PRN ×3 (03:47→16:03)
[2021-04-22] MEDS: NOREPINEPHRINE 32 MG in DEXT 5% WATER 218 ML IV PRN ×3 (03:48→20:54)
[2021-04-22] MEDS: BLOOD SUGAR DIAGNOSTIC STRIP TEST SCH ×5 (04:00→23:25)
[2021-04-22 05:04] LABS: HEMATOCRIT. 29.5 % (42.0-52.0); HEMOGLOBIN. 9.5 g/dL (14.0-18.0); MEAN CORPUSCULAR HEMOGLOBIN 27.9 pg (28.0-32.0); MEAN CORPUSCULAR VOLUME 86.8 fL (80.0-94.0); MEAN PLATELET VOLUME 8.8 fl (7.4-10.4)
[2021-04-22 05:19] LABS: CHLORIDE 91 mEq/L (98-107)
[2021-04-22 05:21] LABS: PLATELET 25 x1000/uL (130-400)
[2021-04-22 05:29] LABS: CREATINE KINASE 450 IU/L (39-308)
[2021-04-22 05:57] LABS: PHOSPHORUS 9.3 mg/dL (2.5-4.9)
[2021-04-22 06:11] LABS: QFT MITOGEN VALUE >10.00 IU/mL (.); QFT TB GOLD PLUS Indeterminate (Negative); QFT TB1 AG VALUE >10.00 IU/mL (.)
[2021-04-22 06:12] LABS: BG BASE EXCESS -17.4 mmol/L (-2.0-2.0); BG CARBOXYHEMOGLOBIN 0.3 % (0.5-1.5); BG DEOXYHEMOGLOBIN 10.4 % (0.0-5.0); BG FRACTION INSPIRED OXYGEN 90; BG HCO3 ACT 9.4 mmol/L (22.0-26.0); BG METHEMOGLOBIN 0.5 % (0.0-1.5); BG OXYGEN SATURATION 89.5 % (92.0-98.5); BG OXYHEMOGLOBIN 88.8 % (94.0-97.0); BG PH 7.177 (7.350-7.450); BG SAMPLE SITE ALINE; BG TOTAL HEMOGLOBIN 10.1 g/dL (12.0-18.0); BG VENT MODE VENT - AC
[2021-04-22] MEDS ORDERED: SODIUM BICARBONATE 8.4% 1 MEQ/ML 50ML SYR IV SCH ×2 (06:30→16:00)
[2021-04-22] MEDS: METHYLPREDNISOLONE SOD SUCC 40 MG/ML VIAL IV SCH ×4 (06:37→17:04)
[2021-04-22] MEDS: METRONIDAZOLE 500MG TABLET PO SCH ×2 (08:13→20:44)
[2021-04-22] MEDS: PANTOPRAZOLE SODIUM 40 MG/VIAL IV SCH ×2 (08:13→20:44)
[2021-04-22] MEDS: LEVOFLOXACIN 250MG PREMIX 50 ML IV SCH ×2 (08:14→11:18)
[2021-04-22] MEDS: CALCIUM CARBONATE 1,250 MG/5 ML UDC PO SCH ×3 (08:14→16:31)
[2021-04-22] MEDS: CALCIUM GLUCONATE 1GM PREMIX 50 ML IV SCH ×3 (08:14→16:30)
[2021-04-22] MEDS: VASOPRESSIN 20 UNIT in SODIUM CHLORIDE 0.9% 99 ML IV PRN ×2 (08:15→16:02)
[2021-04-22] MEDS: DOPAMINE 400MG/250ML PREMIX 250 ML IV PRN (09:44)
[2021-04-22] MEDS ORDERED: DOPAMINE 800MG PREMIX (DOUBLE) 250 ML IV PRN (10:00)
[2021-04-22] MEDS ORDERED: ALBUMIN HUMAN 25GM/100ML (25%) IV NR (10:30)
[2021-04-22 12:12] LABS: BG BASE EXCESS -20.2 mmol/L (-2.0-2.0); BG CARBOXYHEMOGLOBIN 0.7 % (0.5-1.5); BG DEOXYHEMOGLOBIN 8.6 % (0.0-5.0); BG FRACTION INSPIRED OXYGEN 100; BG HCO3 ACT 8.2 mmol/L (22.0-26.0); BG METHEMOGLOBIN 0.3 % (0.0-1.5); BG OXYGEN SATURATION 91.3 % (92.0-98.5); BG OXYHEMOGLOBIN 90.4 % (94.0-97.0); BG PCO2 27.9 mmHg (35.0-45.0); BG PH 7.086 (7.350-7.450); BG PO2 91.3 mmHg (75.0-100.0); BG TOTAL HEMOGLOBIN 9.7 g/dL (12.0-18.0); BG TOTAL RESPIRATORY RATE 41 b/min; BG VENT MODE VENT - AC
[2021-04-22] MEDS ORDERED: CEFEPIME 1,000 MG in DEXTROSE 5% WATER 50 ML IV SCH (14:00)
[2021-04-22] MEDS: FLUCONAZOLE 400MG/200ML BAG 200 ML IV SCH (14:31)
[2021-04-22] MEDS ORDERED: ALBUMIN HUMAN 25GM/100ML (25%) IV SCH (16:00)
[2021-04-22] MEDS: CALCITRIOL 1MCG/ML AMP IV SCH (17:04)
[2021-04-22 17:14] LABS: NUCLEATED RED BLOOD CELLS 50 /100 WBC; PLATELET ESTIMATE MARKEDLY DECREASED
[2021-04-22] MEDS: SODIUM BICARBONATE 150 MEQ in DEXTROSE 5% WATER 1,000 ML IV SCH (18:06)
[2021-04-22 18:26] LABS: BG DEOXYHEMOGLOBIN 14.5 % (0.0-5.0); BG FRACTION INSPIRED OXYGEN 100; BG HCO3 ACT 11.7 mmol/L (22.0-26.0); BG METHEMOGLOBIN 0.4 % (0.0-1.5); BG OXYGEN SATURATION 85.3 % (92.0-98.5); BG OXYHEMOGLOBIN 84.1 % (94.0-97.0); BG PCO2 30.3 mmHg (35.0-45.0); BG PH 7.204 (7.350-7.450); BG PO2 65.7 mmHg (75.0-100.0); BG SAMPLE SITE ALINE; BG TOTAL HEMOGLOBIN 8.2 g/dL (12.0-18.0); BG VENT MODE VENT - AC
[2021-04-22] MEDS: MIDAZOLAM HCL 100 MG in SODIUM CHLORIDE 0.9% 80 ML IV PRN (19:44)
[2021-04-22 23:38] LABS: HEMATOCRIT. 27.3 % (42.0-52.0); HEMOGLOBIN. 8.4 g/dL (14.0-18.0); MEAN CORPUSCULAR HEMOGLOBIN 28.2 pg (28.0-32.0); MEAN PLATELET VOLUME 7.2 fl (7.4-10.4); RED BLOOD CELL COUNT 2.97 mill/uL (4.7-6.1); RED CELL DISTRIBUTION WIDTH 21.5 % (11.6-14.6)
[2021-04-22 23:49] LABS: BG BASE EXCESS -20.1 mmol/L (-2.0-2.0); BG DEOXYHEMOGLOBIN 11.5 % (0.0-5.0); BG FRACTION INSPIRED OXYGEN 100; BG HCO3 ACT 8.3 mmol/L (22.0-26.0); BG METHEMOGLOBIN 0.6 % (0.0-1.5); BG OXYGEN SATURATION 88.3 % (92.0-98.5); BG OXYHEMOGLOBIN 86.9 % (94.0-97.0); BG PCO2 28.4 mmHg (35.0-45.0); BG PH 7.085 (7.350-7.450); BG PO2 80.8 mmHg (75.0-100.0); BG SAMPLE SITE LEFT RADIAL; BG TOTAL HEMOGLOBIN 8.9 g/dL (12.0-18.0); BG VENT MODE VENT - AC
[2021-04-23] VITALS (33 sets, daily range): BP systolic 25–158; BP diastolic 16–75
[2021-04-23] MEDS ORDERED: D5W IV SCH
[2021-04-23] MEDS ORDERED: METHYLPREDNISOLONE SOD SUCC 40 MG/ML VIAL IV SCH
[2021-04-23] MEDS ORDERED: METHYLPREDNISOLONE IV SCH
[2021-04-23 00:10] LABS: CHLORIDE 89 mEq/L (98-107)
[2021-04-23] MEDS ORDERED: SODIUM BICARBONATE 8.4% 1 MEQ/ML 50ML SYR IV NR (00:15)
[2021-04-23 00:21] LABS: PLATELET 21 x1000/uL (130-400)
[2021-04-23] MEDS: PHENYLEPHRINE 100 MG in DEXT 5% WATER 240 ML IV PRN (01:23)
[2021-04-23] MEDS ORDERED: EPINEPHRINE 10 MG in SODIUM CHLORIDE 0.9% 240 ML IV PRN (01:45)
[2021-04-23] MEDS ORDERED: SODIUM BICARBONATE IV SCH (02:00)
[2021-04-23] MEDS ORDERED: WATER IV SCH (02:00)
[2021-04-23] MEDS ORDERED: DEXT 10% IV SCH (02:00)
[2021-04-23] MEDS: VASOPRESSIN 20 UNIT in SODIUM CHLORIDE 0.9% 99 ML IV PRN (02:18)
[2021-04-23] MEDS ORDERED: SODIUM BICARBONATE 8.4% 1 MEQ/ML 50ML SYR IV ONE ×3 (04:18→10:53)
[2021-04-23] MEDS ORDERED: SODIUM BICARBONATE 150 MEQ in DEXT 10% WATER 1,000 ML IV SCH (05:00)
[2021-04-23] MEDS ORDERED: SODIUM BICARBONATE 8.4% 1 MEQ/ML 50ML SYR IV SCH (06:00)
[2021-04-23] MEDS ORDERED: ALBUMIN HUMAN 25GM/100ML (25%) IV SCH (06:00)
[2021-04-23 09:06] LABS: ANTI-DNA DOUBLE STRANDED QUANT < 1 IU/mL (0-9); ANTI-JO 1 ABS <0.2 AI (0.0-0.9); G6PD RBC 3.64 x10E6/uL (4.14-5.80)
[2021-04-23] MEDS ORDERED: DEXTROSE 50% WATER 50ML SYRINGE IV ONE (10:53)
[2021-04-23] MEDS ORDERED: CALCIUM CHLORIDE 1GM/10ML SYR IV ONE (10:53)
[2021-04-23] MEDS ORDERED: EPINEPHRINE 0.1MG/ML (1:10,000) 10ML SYR ONE (10:53)
[2021-04-23 15:11] LABS: G6PD QUANTITATIVE 324 (127-427)
[2021-04-23 15:29] LABS: NUCLEATED RED BLOOD CELLS 29 /100 WBC
[2021-04-23 15:30] LABS: PLATELET ESTIMATE MARKEDLY DECREASED
[2021-04-24 09:06] LABS: HLA CLASS 1 ANTIBODY Positive (Negative); IIb/IIIa ANTIBODY Positive (Negative); Ia/IIa ANTIBODY Negative (Negative); Ib/IX ANTIBODY Positive (Negative)
[2021-04-24 13:11] LABS: ACTIN (SMOOTH MUSCLE) ANTIBODY 7 Units (0-19); ALDOLASE 79.8 U/L (3.3-10.3)
[2021-04-25 09:09] LABS: ANTI-CARDIOLIPIN AB IGA < 9 APL U/mL (0-11); ANTI-CARDIOLIPIN AB IGG < 9 GPL U/mL (0-14); ANTI-CARDIOLIPIN AB IGM < 9 MPL U/mL (0-12)
[2021-04-26 19:06] LABS: ANA IFA Negative (.)
[2021-04-27 19:06] LABS: HISTOPLASMA ABS QT DID None Detected (.)
== END 2021-04-23 05:33 | DRG 853 ==
LOC: ER 11:11 → 5EST 14:12 → EDBEDREQTM 14:23 → EDBEDREQ 14:23 → ENRESERV 14:32 → 5EST 04-11 07:49 → CVICU 04-17 16:58
PROVIDERS: ADMIT Internal Medicine; ATTEND Internal Medicine
PROC: 5A1D70Z Performance of Urinary Filtration, Intermittent, Less than 6 Hours Per Day (ICD-10-PCS; 2021-04-08)
PROC: 02HV33Z Insertion of Infusion Device into Superior Vena Cava, Percutaneous Approach (ICD-10-PCS; 2021-04-09)
PROC: B548ZZA Ultrasonography of Superior Vena Cava, Guidance (ICD-10-PCS; 2021-04-09)
PROC: 5A1D70Z Performance of Urinary Filtration, Intermittent, Less than 6 Hours Per Day (ICD-10-PCS; 2021-04-09)
PROC: 5A1D70Z Performance of Urinary Filtration, Intermittent, Less than 6 Hours Per Day (ICD-10-PCS; 2021-04-10)
PROC: 0F943ZZ Drainage of Gallbladder, Percutaneous Approach (ICD-10-PCS; 2021-04-11)
PROC: 5A1D70Z Performance of Urinary Filtration, Intermittent, Less than 6 Hours Per Day (ICD-10-PCS; 2021-04-11)
PROC: 5A1D70Z Performance of Urinary Filtration, Intermittent, Less than 6 Hours Per Day (ICD-10-PCS; 2021-04-12)
PROC: 0F24X0Z Change Drainage Device in Gallbladder, External Approach (ICD-10-PCS; 2021-04-13)
PROC: 5A1D70Z Performance of Urinary Filtration, Intermittent, Less than 6 Hours Per Day (ICD-10-PCS; 2021-04-13)
PROC: 5A1D70Z Performance of Urinary Filtration, Intermittent, Less than 6 Hours Per Day (ICD-10-PCS; 2021-04-15)
PROC: 5A1D70Z Performance of Urinary Filtration, Intermittent, Less than 6 Hours Per Day (ICD-10-PCS; 2021-04-16)
PROC: 30233K1 Transfusion of Nonautologous Frozen Plasma into Peripheral Vein, Percutaneous Approach (ICD-10-PCS; 2021-04-17)
PROC: 0FBC8ZX Excision of Ampulla of Vater, Via Natural or Artificial Opening Endoscopic, Diagnostic (ICD-10-PCS; 2021-04-17)
PROC: 30233N1 Transfusion of Nonautologous Red Blood Cells into Peripheral Vein, Percutaneous Approach (ICD-10-PCS; 2021-04-17)
PROC: 30233R1 Transfusion of Nonautologous Platelets into Peripheral Vein, Percutaneous Approach (ICD-10-PCS; 2021-04-17)
PROC: 0FB04ZX Excision of Liver, Percutaneous Endoscopic Approach, Diagnostic (ICD-10-PCS; principal; 2021-04-18)
PROC: 5A1955Z Respiratory Ventilation, Greater than 96 Consecutive Hours (ICD-10-PCS; 2021-04-18)
PROC: 0BH17EZ Insertion of Endotracheal Airway into Trachea, Via Natural or Artificial Opening (ICD-10-PCS; 2021-04-18)
PROC: 5A1D70Z Performance of Urinary Filtration, Intermittent, Less than 6 Hours Per Day (ICD-10-PCS; 2021-04-18)
PROC: 5A1D70Z Performance of Urinary Filtration, Intermittent, Less than 6 Hours Per Day (ICD-10-PCS; 2021-04-20)
PROC: 5A1D70Z Performance of Urinary Filtration, Intermittent, Less than 6 Hours Per Day (ICD-10-PCS; 2021-04-21)
PROC: 5A1D70Z Performance of Urinary Filtration, Intermittent, Less than 6 Hours Per Day (ICD-10-PCS; 2021-04-22)
DX: A41.59 Other Gram-negative sepsis (principal); N18.6 End stage renal disease; E43 Unspecified severe protein-calorie malnutrition; J96.01 Acute respiratory failure with hypoxia; J18.9 Pneumonia, unspecified organism; D65 Disseminated intravascular coagulation [defibrination syndrome]; I50.33 Acute on chronic diastolic (congestive) heart failure; R65.21 Severe sepsis with septic shock; K80.00 Calculus of gallbladder with acute cholecystitis without obstruction; E87.1 Hypo-osmolality and hyponatremia; J44.0 Chronic obstructive pulmonary disease with (acute) lower respiratory infection; K86.3 Pseudocyst of pancreas; K92.2 Gastrointestinal hemorrhage, unspecified; B17.9 Acute viral hepatitis, unspecified; D61.818 Other pancytopenia; E87.2 Acidosis; I42.9 Cardiomyopathy, unspecified; I48.20 Chronic atrial fibrillation, unspecified; K86.2 Cyst of pancreas; N25.81 Secondary hyperparathyroidism of renal origin; I13.2 Hypertensive heart and chronic kidney disease with heart failure and with stage 5 chronic kidney disease, or end stage renal disease; D68.59 Other primary thrombophilia; E87.5 Hyperkalemia; E78.5 Hyperlipidemia, unspecified; E11.649 Type 2 diabetes mellitus with hypoglycemia without coma; N28.1 Cyst of kidney, acquired; K70.31 Alcoholic cirrhosis of liver with ascites; E11.22 Type 2 diabetes mellitus with diabetic chronic kidney disease; E11.65 Type 2 diabetes mellitus with hyperglycemia; E56.1 Deficiency of vitamin K; E66.9 Obesity, unspecified; E83.51 Hypocalcemia; F17.210 Nicotine dependence, cigarettes, uncomplicated; I25.10 Atherosclerotic heart disease of native coronary artery without angina pectoris; I35.8 Other nonrheumatic aortic valve disorders; I48.0 Paroxysmal atrial fibrillation; K72.90 Hepatic failure, unspecified without coma; R59.9 Enlarged lymph nodes, unspecified; Z20.822 Contact with and (suspected) exposure to COVID-19; T38.3X5A Adverse effect of insulin and oral hypoglycemic [antidiabetic] drugs, initial encounter; Z79.01 Long term (current) use of anticoagulants; Z82.49 Family history of ischemic heart disease and other diseases of the circulatory system; Z86.16 Personal history of COVID-19; Z86.2 Personal history of diseases of the blood and blood-forming organs and certain disorders involving the immune mechanism; Z87.442 Personal history of urinary calculi; Z99.2 Dependence on renal dialysis
CPT/HCPCS: 36415; 36430; 36600; 47490; 71045; 74176; 74177; 74181; 76000; 76700; 76937; 80048; 80053; 80076; 80202; 82040; 82085; 82140; 82164; 82248; 82306; 82330; 82375; 82378; 82533; 82550; 82595; 82607; 82668; 82728; 82746; 82805; 82941; 82955; 82962; 83036; 83525; 83540; 83550; 83605; 83615; 83735; 84100; 84134; 84206; 84439; 84443; 84478; 85014; 85018; 85025; 85041; 85044; 85379; 85384; 85651; 86022; 86147; 86160; 86225; 86235; 86256; 86301; 86337; 86480; 86635; 86698; 86705; 86709; 86803; 86850; 86880; 86900; 86920; 86927; 87015; 87045; 87070; 87075; 87077; 87116; 87186; 87340; 87426; 87427; 87449; 87493; 87899; 88305; 88307; 88313; 89055; 93005; 93306; 94002; 94003; 99285; C1725; C1726; C1729; C1769; C9113; J0282; J0610; J0636; J0692; J0885; J1100; J1160; J1170; J1265; J1450; J1610; J1720; J1815; J1956; J2250; J2370; J2543; J2597; J2704; J2920; J2930; J3010; J3370; J3430; J3490; J7040; J7042; J7050; J7060; J7070; P9016; P9017; P9047; Q9963; Q9967; P9035